=== PATIENT | male | born 1950 ===

== ENCOUNTER 2017-03-29 10:54 | Emergency (ER) | payer OTHER ==
[~2017-03-29] VITALS: Ht 172.7 cm; Wt 97.5 kg
[~2017-03-29 10:54] MED LIST: ACET325 PO; ALBU.083IS IH; AMLO5; ARIP10 PO; ARIP30 PO; ASPI325; ASPI325 PO; BENZ.5 PO; BENZ1; BENZ2; BISA10S PR; CALCAVITD PO; CALPHO600; CARB200; CARB200 PO; CEPH500 PO; CLOBET30L TP; CLOP75 PO; DOC250; DOC250 PO; FERR325 PO; FEXO180 PO; FIBER LAX625 MG PO; FLUV50 PO; HYDACE5 PO; IBUP600 PO; LAMO5 PO; MOM PO; OLAN10; OLAN10 PO; OLAN5; PHENO100; PHENO15 PO; POLY500 PO; PRAV20 PO; QUIN10; SENN187 PO; SENNP; SERT100; SERT100 PO; SULTRIDS PO; TAMS.4ER PO; TERB24TC TOP; TOLN1TC TOP; TRAZ100; VITB2 PO; WARF4; WARF7.5; [UNRECOGNIZED DRUG - OTHER]
[2017-03-29] MEDS ORDERED: Cleocin HCl300 MG PO (12:03)
== END 2017-03-29 12:07 | disposition home or self-care (01) ==
LOC: ER 10:54
DX: L03.031 Cellulitis of right toe (principal); I10 Essential (primary) hypertension; G40.909 Epilepsy, unspecified, not intractable, without status epilepticus; J44.9 Chronic obstructive pulmonary disease, unspecified; Z88.1 Allergy status to other antibiotic agents; Z79.899 Other long term (current) drug therapy
CPT/HCPCS: 73630; 99283

== ENCOUNTER → 2017-06-16 | Outpatient (CLI) | payer OTHER ==
[~2017-06-16] MED LIST changes: +Cleocin HCl300 MG PO
[2017-06-16 10:51] LABS: Source, Urine Voided
[2017-06-16 11:50] LABS: Bilirubin, Urine Neg (Neg); Blood, Urine Neg (Neg); Glucose Qualitative, Urine Neg (Neg); Ketones, Urine Neg (Neg); Leukocyte Esterase, Urine Neg (Neg); Nitrite, Urine Neg (Neg); Protein, Urine Neg (Neg); Urobilinogen, Urine NORM (Normal)
[2017-06-16 12:03] LABS: Appearance, Urine Clear (Clear); Color, Urine Yellow (P-Yellow)
== END | disposition home or self-care (01) ==
LOC: OLS 10:49
PROVIDERS: Registered Nurse Psychiatric/Mental Health
DX: R32 Unspecified urinary incontinence (principal)
CPT/HCPCS: 81003

== ENCOUNTER 2018-05-19 09:41 | Emergency (ER) | payer OTHER ==
[~2018-05-19] VITALS: Ht 172.7 cm; Wt 104.3 kg
== END 2018-05-19 11:03 | disposition home or self-care (01) ==
LOC: ER 09:41
DX: S93.402A Sprain of unspecified ligament of left ankle, initial encounter (principal); I10 Essential (primary) hypertension; J44.9 Chronic obstructive pulmonary disease, unspecified; Z79.899 Other long term (current) drug therapy; W18.30XA Fall on same level, unspecified, initial encounter
CPT/HCPCS: 73610; 99283-25

== ENCOUNTER → 2018-09-02 | Outpatient (CLI) | payer OTHER ==
[~2018-09-02] MED LIST changes: +FLUO10 PO; +LAMO100 PO; +PHENO100 PO; +PRAV20; +TOPI25 PO
[2018-09-03 14:16] LABS: Stool Occult Bld Immuno 1 Negative (NEGATIVE)
== END | disposition home or self-care (01) ==
LOC: LAB 14:12 → LAB SHORT 14:12
PROVIDERS: Family Medicine
DX: Z12.11 Encounter for screening for malignant neoplasm of colon (principal)
CPT/HCPCS: G0328

== ENCOUNTER 2018-12-07 11:31 | Emergency (ER) | payer OTHER ==
[~2018-12-07] VITALS: Ht 170.2 cm; Wt 117.5 kg
[~2018-12-07 11:31] MED LIST changes: -FLUO10 PO; -LAMO100 PO; -PHENO100 PO; -PRAV20; -TOPI25 PO
[2018-12-07] MEDS ORDERED: PHENO100 PO (11:48)
[2018-12-07] MEDS ORDERED: LAMO100 PO (11:49)
[2018-12-07] MEDS ORDERED: FLUO10 PO (11:49)
[2018-12-07] MEDS ORDERED: CLOP75 PO (11:49)
[2018-12-07] MEDS ORDERED: PRAV20 (11:49)
[2018-12-07] MEDS ORDERED: TOPI25 PO (11:50)
[2018-12-07 12:05] LABS: BASOPHILS ABSOLUTE AUTO 0.05 K/mm3 (0.00-0.23); BASOPHILS PERCENT AUTO 1 % (0-2); EOSINOPHILS ABSOLUTE AUTO 0.33 K/mm3 (0.00-0.68); EOSINOPHILS PERCENT AUTO 6 % (0-6); Hematocrit 39.5 % (37.0-53.0); Hemoglobin 12.6 g/dL (13.5-17.5); IMMATURE GRAN ABSOLUTE AUTO 0.01 K/mm3 (0.00-0.10); IMMATURE GRAN PERCENT AUTO 0 % (0-1); LYMPHOCYTES ABSOLUTE AUTO 0.95 K/mm3 (0.84-5.20); LYMPHOCYTES PERCENT AUTO 17 % (21-46); MONOCYTES ABSOLUTE AUTO 0.61 K/mm3 (0.16-1.47); MONOCYTES PERCENT AUTO 11 % (4-13); Mean Corpuscular HGB 32.1 pg (26.0-34.0); Mean Corpuscular HGB Conc 31.9 g/dL (31.5-36.5); Mean Corpuscular Volume 101 fL (80-100); Mean Platelet Volume 9.3 fL (9.1-12.4); NEUTROPHILS ABSOLUTE AUTO 3.64 K/mm3 (1.96-9.15); NEUTROPHILS PERCENT AUTO 65 % (41-73); Platelet Count 183 K/mm3 (150-400); RDW Coefficient Variation 14.2 % (11.7-14.2); RDW Standard Deviation 53.2 fL (35.1-46.3); Red Blood Cell Count 3.93 M/mm3 (4.30-5.90); White Blood Cell Count 5.59 K/mm3 (4.00-11.30)
[2018-12-07 12:31] LABS: Alanine Aminotransfer (ALT/SGP 24 U/L (12-78); Albumin, Blood 3.6 g/dL (3.4-5.0); Alk Phos 198 U/L (50-136); Anion Gap 7 mmol/L (6-16); Aspartate Aminotrans (AST/SGOT 19 U/L (12-37); Bilirubin, Total 0.4 mg/dL (0.1-1.0); Blood Urea Nitrogen 10 mg/dL (8-24); CO2, Blood 27 mmol/L (21-32); Calcium, Blood 8.6 mg/dL (8.5-10.1); Chloride, Blood 111 mmol/L (98-108); Creatinine, Blood 0.53 mg/dL (0.60-1.20); Globulin, Blood 3.6 g/dL (2.2-4.0); Glomerular Filtration Rate >60 (60-); Glucose, Blood 77 mg/dL (70-99); Potassium, Blood 3.6 mmol/L (3.5-5.5); Sodium, Blood 145 mmol/L (136-145); Total Protein, Blood 7.2 g/dL (6.4-8.2); Troponin I <0.015 ng/mL (0.000-0.040)
== END 2018-12-07 13:42 | disposition home or self-care (01) ==
LOC: ER 11:31
PROVIDERS: Emergency Medicine
DX: S00.03XA Contusion of scalp, initial encounter (principal); I48.91 Unspecified atrial fibrillation; I10 Essential (primary) hypertension; J44.9 Chronic obstructive pulmonary disease, unspecified; G47.30 Sleep apnea, unspecified; Z88.1 Allergy status to other antibiotic agents; Z79.899 Other long term (current) drug therapy; W18.30XA Fall on same level, unspecified, initial encounter
CPT/HCPCS: 36415; 70450; 71046; 80053; 84484; 85025; 93005; 93010; 99284-25

== ENCOUNTER 2019-01-30 12:04 | Emergency (ER) | payer OTHER ==
[~2019-01-30] VITALS: Ht 172.7 cm; Wt 117.9 kg
[~2019-01-30 12:04] MED LIST changes: +FLUO10 PO; +LAMO100 PO; +PHENO100 PO; +PRAV20; +TOPI25 PO
[2019-01-30 15:24] LABS: BASOPHILS ABSOLUTE AUTO 0.08 K/mm3 (0.00-0.23); BASOPHILS PERCENT AUTO 1 % (0-2); EOSINOPHILS ABSOLUTE AUTO 0.52 K/mm3 (0.00-0.68); EOSINOPHILS PERCENT AUTO 7 % (0-6); Hematocrit 39.4 % (37.0-53.0); Hemoglobin 11.9 g/dL (13.5-17.5); IMMATURE GRAN ABSOLUTE AUTO 0.02 K/mm3 (0.00-0.10); IMMATURE GRAN PERCENT AUTO 0 % (0-1); LYMPHOCYTES ABSOLUTE AUTO 0.93 K/mm3 (0.84-5.20); LYMPHOCYTES PERCENT AUTO 12 % (21-46); MONOCYTES ABSOLUTE AUTO 0.79 K/mm3 (0.16-1.47); MONOCYTES PERCENT AUTO 11 % (4-13); Mean Corpuscular HGB 31.2 pg (26.0-34.0); Mean Corpuscular HGB Conc 30.2 g/dL (31.5-36.5); Mean Corpuscular Volume 103 fL (80-100); NEUTROPHILS ABSOLUTE AUTO 5.21 K/mm3 (1.96-9.15); NEUTROPHILS PERCENT AUTO 69 % (41-73); Platelet Count 204 K/mm3 (150-400); RDW Coefficient Variation 14.3 % (11.7-14.2); RDW Standard Deviation 54.5 fL (35.1-46.3); Red Blood Cell Count 3.81 M/mm3 (4.30-5.90); White Blood Cell Count 7.55 K/mm3 (4.00-11.30)
[2019-01-30 15:49] LABS: Alanine Aminotransfer (ALT/SGP 25 U/L (12-78); Albumin, Blood 3.4 g/dL (3.4-5.0); Albumin/Globulin Ratio 0.9 (0.8-1.8); Alk Phos 238 U/L (50-136); Anion Gap 4 mmol/L (6-16); Aspartate Aminotrans (AST/SGOT 27 U/L (12-37); Bilirubin, Total 0.5 mg/dL (0.1-1.0); Blood Urea Nitrogen 7 mg/dL (8-24); Bun/Creatinine Ratio 12.4 (12.0-20.0); CO2, Blood 36 mmol/L (21-32); Calcium, Blood 9.1 mg/dL (8.5-10.1); Chloride, Blood 100 mmol/L (98-108); Creatinine, Blood 0.56 mg/dL (0.60-1.20); Globulin, Blood 3.9 g/dL (2.2-4.0); Glomerular Filtration Rate >60 (60-); Glucose, Blood 88 mg/dL (70-99); Potassium, Blood 3.8 mmol/L (3.5-5.5); Sodium, Blood 140 mmol/L (136-145); Total Protein, Blood 7.3 g/dL (6.4-8.2); Troponin I <0.015 ng/mL (0.000-0.040)
[2019-01-30] MEDS ORDERED: Dyazide 37.5-21 EACH PO (16:17)
== END 2019-01-30 16:50 | disposition home or self-care (01) ==
LOC: ER 12:04
PROVIDERS: Physician Assistant
DX: E87.70 Fluid overload, unspecified (principal); I10 Essential (primary) hypertension; J45.909 Unspecified asthma, uncomplicated; I48.91 Unspecified atrial fibrillation; Z87.442 Personal history of urinary calculi; Z88.8 Allergy status to other drugs, medicaments and biological substances; Z79.899 Other long term (current) drug therapy; Z79.02 Long term (current) use of antithrombotics/antiplatelets
CPT/HCPCS: 36415; 71046; 80053; 83880; 84484; 85025; 93005; 93010; 94640; 99284-25

== ENCOUNTER 2019-07-15 21:11 | Emergency (ER) | payer OTHER ==
[~2019-07-15] VITALS: Ht 172.7 cm; Wt 113.4 kg
[~2019-07-15 21:11] MED LIST changes: +Dyazide 37.5-21 EACH PO
[2019-07-15 22:59] LABS: BASOPHILS ABSOLUTE AUTO 0.02 K/mm3 (0.00-0.23); BASOPHILS PERCENT AUTO 0 % (0-2); EOSINOPHILS ABSOLUTE AUTO 0.13 K/mm3 (0.00-0.68); EOSINOPHILS PERCENT AUTO 2 % (0-6); Hematocrit 36.2 % (37.0-53.0); Hemoglobin 12.4 g/dL (13.5-17.5); IMMATURE GRAN ABSOLUTE AUTO 0.02 K/mm3 (0.00-0.10); IMMATURE GRAN PERCENT AUTO 0 % (0-1); LYMPHOCYTES ABSOLUTE AUTO 0.75 K/mm3 (0.84-5.20); LYMPHOCYTES PERCENT AUTO 12 % (21-46); MONOCYTES ABSOLUTE AUTO 0.94 K/mm3 (0.16-1.47); MONOCYTES PERCENT AUTO 16 % (4-13); Mean Corpuscular HGB 32.5 pg (26.0-34.0); Mean Corpuscular HGB Conc 34.3 g/dL (31.5-36.5); Mean Corpuscular Volume 95 fL (80-100); Mean Platelet Volume 8.7 fL (9.1-12.4); NEUTROPHILS ABSOLUTE AUTO 4.19 K/mm3 (1.96-9.15); NEUTROPHILS PERCENT AUTO 69 % (41-73); Platelet Count 177 K/mm3 (150-400); RDW Coefficient Variation 12.5 % (11.7-14.2); RDW Standard Deviation 43.7 fL (35.1-46.3); Red Blood Cell Count 3.82 M/mm3 (4.30-5.90); White Blood Cell Count 6.05 K/mm3 (4.00-11.30)
[2019-07-15 23:17] LABS: Alanine Aminotransfer (ALT/SGP 47 U/L (12-78); Albumin, Blood 3.3 g/dL (3.4-5.0); Albumin/Globulin Ratio 0.9 (0.8-1.8); Alk Phos 161 U/L (50-136); Anion Gap 7 mmol/L (6-16); Aspartate Aminotrans (AST/SGOT 127 U/L (12-37); Bilirubin, Total 0.9 mg/dL (0.1-1.0); Blood Urea Nitrogen 8 mg/dL (8-24); Bun/Creatinine Ratio 17.5 (12.0-20.0); CO2, Blood 33 mmol/L (21-32); Calcium, Blood 8.1 mg/dL (8.5-10.1); Chloride, Blood 92 mmol/L (98-108); Creatinine, Blood 0.46 mg/dL (0.60-1.20); Globulin, Blood 3.7 g/dL (2.2-4.0); Glomerular Filtration Rate >60 (60-); Glucose, Blood 115 mg/dL (70-99); Potassium, Blood 3.4 mmol/L (3.5-5.5); Sodium, Blood 132 mmol/L (136-145)
== END 2019-07-15 23:48 | disposition home or self-care (01) ==
LOC: ER 21:11
PROVIDERS: Emergency Medicine
DX: K62.5 Hemorrhage of anus and rectum (principal); I10 Essential (primary) hypertension; I48.91 Unspecified atrial fibrillation; J44.9 Chronic obstructive pulmonary disease, unspecified; F20.9 Schizophrenia, unspecified; G47.33 Obstructive sleep apnea (adult) (pediatric); Z88.1 Allergy status to other antibiotic agents; Z79.899 Other long term (current) drug therapy; Z79.51 Long term (current) use of inhaled steroids; Z79.02 Long term (current) use of antithrombotics/antiplatelets
CPT/HCPCS: 36415; 74018; 80053; 85025; 99283-25

== ENCOUNTER → 2019-07-16 | Outpatient (CLI) | payer OTHER | END | disposition home or self-care (01) | LOC: LAB SHORT 14:05 → LAB EV 14:05 | DX: L03.113 Cellulitis of right upper limb (principal) | CPT/HCPCS: 87070; 87075; 87077; 87147; 87186; 87205 ==

== ENCOUNTER → 2020-01-31 | Outpatient (CLI) | payer OTHER ==
[2020-01-31 11:18] LABS: Appearance, Urine Clear (Clear); Bilirubin, Urine Neg (Neg); Blood, Urine Neg (Neg); Color, Urine Yellow (P-Yellow); Glucose Qualitative, Urine Neg (Neg); Ketones, Urine Neg (Neg); Leukocyte Esterase, Urine Neg (Neg); Nitrite, Urine Neg (Neg); Protein, Urine Neg (Neg); Specific Gravity, Urine 1.005 (1.003-1.022); Urobilinogen, Urine NORM (Normal)
== END ==
LOC: LAB SHORT 10:27 → LAB 10:27
PROVIDERS: Family Medicine
DX: R30.0 Dysuria (principal)
CPT/HCPCS: 81003

== ENCOUNTER → 2020-02-27 | Outpatient (CLI) | payer OTHER ==
[2020-02-27 16:00] LABS: Appearance, Urine Hazy (Clear); Bilirubin, Urine Neg (Neg); Blood, Urine 1+ (Neg); Color, Urine Yellow (P-Yellow); Glucose Qualitative, Urine Neg (Neg); Ketones, Urine Neg (Neg); Leukocyte Esterase, Urine 2+ (Neg); Nitrite, Urine Pos (Neg); Protein, Urine Neg (Neg); Specific Gravity, Urine 1.005 (1.003-1.022); Urobilinogen, Urine NORM (Normal)
[2020-02-27 16:16] LABS: Bacteria Many /hpf; Squamous Epithelial Cells Few /hpf (Few); White Blood Cells, Urine 25-50 /hpf (0-5)
== END | disposition home or self-care (01) ==
LOC: LAB 14:16
PROVIDERS: Family Medicine
DX: R30.0 Dysuria (principal)
CPT/HCPCS: 81001; 87077; 87086; 87186

== ENCOUNTER 2021-04-06 01:24 | Inpatient (IN) | payer OTHER ==
[~2021-04-06] VITALS: Ht 172.7 cm; Wt 112.9 kg
[2021-04-06] MEDS ORDERED: ABILIFY MYCITE10 M2 PO (01:43)
[2021-04-06] MEDS ORDERED: LOSA25 PO (01:45)
[2021-04-06] MEDS ORDERED: NYSTOP15 GM TOP (01:48)
[2021-04-06] MEDS ORDERED: POTA10T PO (01:51)
[2021-04-06] MEDS ORDERED: PROAIR DIGIHAL90 MCG INH (01:53)
[2021-04-06] MEDS ORDERED: TORSE20 PO (01:55)
[2021-04-06] MEDS ORDERED: TRIDERM28.4 GM TOP (01:56)
[2021-04-06] MEDS ORDERED: TRIAMTERENE-HCTZ (01:59)
[2021-04-06] MEDS ORDERED: OLAN20 MM (02:00)
[2021-04-06 03:56] LABS: BASOPHILS ABSOLUTE AUTO 0.05 K/mm3 (0.00-0.23); BASOPHILS PERCENT AUTO 0 % (0-2); EOSINOPHILS PERCENT AUTO 0 % (0-6); Hematocrit 31.7 % (37.0-53.0); Hemoglobin 10.6 g/dL (13.5-17.5); IMMATURE GRAN ABSOLUTE AUTO 0.08 K/mm3 (0.00-0.10); IMMATURE GRAN PERCENT AUTO 1 % (0-1); LYMPHOCYTES ABSOLUTE AUTO 0.94 K/mm3 (0.84-5.20); LYMPHOCYTES PERCENT AUTO 6 % (21-46); MONOCYTES ABSOLUTE AUTO 1.23 K/mm3 (0.16-1.47); MONOCYTES PERCENT AUTO 8 % (4-13); Mean Corpuscular HGB 31.5 pg (26.0-34.0); Mean Corpuscular HGB Conc 33.4 g/dL (31.5-36.5); Mean Corpuscular Volume 94 fL (80-100); Mean Platelet Volume 8.6 fL (9.1-12.4); NEUTROPHILS ABSOLUTE AUTO 14.07 K/mm3 (1.96-9.15); NEUTROPHILS PERCENT AUTO 86 % (41-73); Platelet Count 192 K/mm3 (150-400); RDW Coefficient Variation 13.5 % (11.7-14.2); RDW Standard Deviation 46.6 fL (35.1-46.3); Red Blood Cell Count 3.36 M/mm3 (4.30-5.90); White Blood Cell Count 16.37 K/mm3 (4.00-11.30)
--- NOTE | 2021-04-06 04:00 | NUR ---
PT ARRIVES TO ICU AT 0336. HE IS ON AWAKE AND ALERT, ON BIPAP 14/10, FIO2 30%, VSS. PT IS MILDLY TACHYPNEIC, WHEEZES THROUGHOUT AND CRACKLES IN THE BASES. SPO2 IN HIGH 90'S. PT IS TRANSFERRED TO ICU BED AND SKIN IS ASSESSED. HE HAS SMALL SCATTERED BRUISES AND SUPERFICIAL ABRASIONS, EDEMATOUS BLE. BJ 3MM, DE PAZ, EQUAL STRENGTH AND MOVEMENT. CAREGIVER IS IN ATTENDANCE PT RESIDES AT [facility] DUE TO HX OF DEVELOPMENTAL DELAY AND SCHIZOPHRENIA. MD ORDERS ARE IMPLEMENTED AND ADMISSION COMPLETED.
[2021-04-06] MEDS ORDERED: ACET500 PO (04:08)
[2021-04-06] MEDS ORDERED: Ventolin5 MG/1 ML INH (04:10)
[2021-04-06] MEDS ORDERED: CLOBET30L TOP (04:13)
[2021-04-06] MEDS ORDERED: DOC250 PO (04:14)
[2021-04-06] MEDS ORDERED: MIRALAX17 GM PO (04:17)
[2021-04-06 04:19] LABS: Troponin I 0.17 ng/mL (0.000-0.040)
[2021-04-06 04:30] LABS: Alanine Aminotransfer (ALT/SGP 26 U/L (12-78); Albumin, Blood 2.5 g/dL (3.4-5.0); Albumin/Globulin Ratio 0.7 (0.8-1.8); Alk Phos 147 U/L (50-136); Anion Gap 8 mmol/L (6-16); Aspartate Aminotrans (AST/SGOT 37 U/L (12-37); Bilirubin, Total 1.1 mg/dL (0.1-1.0); Blood Urea Nitrogen 15 mg/dL (8-24); Bun/Creatinine Ratio 30.7 (12.0-20.0); CO2, Blood 28 mmol/L (21-32); Calcium, Blood 7.5 mg/dL (8.5-10.1); Chloride, Blood 99 mmol/L (98-108); Creatinine, Blood 0.49 mg/dL (0.60-1.20); Globulin, Blood 3.5 g/dL (2.2-4.0); Glomerular Filtration Rate >60 (60-); Glucose, Blood 118 mg/dL (70-99); Potassium, Blood 3.7 mmol/L (3.5-5.5); Sodium, Blood 135 mmol/L (136-145)
[2021-04-06 04:33] LABS: Creatine Kinase MB 4.7 ng/mL (0.0-3.6); Creatine Kinase MB Index 1.1 (0.0-4.0)
[2021-04-06 04:41] LABS: Source, Urine Catheter
[2021-04-06 04:44] LABS: Bilirubin, Urine Neg (Neg); Blood, Urine 3+ (Neg); Glucose Qualitative, Urine Neg (Neg); Ketones, Urine Neg (Neg); Leukocyte Esterase, Urine 2+ (Neg); Nitrite, Urine Neg (Neg); Protein, Urine 2+ (Neg); Urobilinogen, Urine NORM (Normal)
[2021-04-06 04:57] LABS: Appearance, Urine Hazy (Clear); Color, Urine Yellow (P-Yellow)
[2021-04-06 04:58] LABS: Bacteria Mod /hpf; Squamous Epithelial Cells Rare /hpf (Few)
[2021-04-06 04:59] LABS: Amorphous Light (0-Heavy)
[2021-04-06 05:05] LABS: U Amphetamine Screen Not Detected; U Barbituate Screen DETECTED; U Benzodiazapine Screen Not Detected; U Buprenorphine Screen Not Detected; U Cannabinoids Screen Not Detected; U Cocaine Screen Not Detected; U Methadone Screen Not Detected; U Methamphetamine Screen Not Detected; U Opiates Screen Not Detected; U Oxycodone Screen Not Detected; U Phencyclidine Screen Not Detected; U Propoxyphene Screen Not Detected
--- NOTE | 2021-04-06 06:11 | NUR ---
NO ACUTE CHANGES. PT IS SLEEPING RESTFULLY WITH BIPAP ON. VSS. CAREGIVER HAS LEFT FOR THE SHIFT, UNSURE IF A DAYSHIFT CAREGIVER WILL ARRIVE SOON, BUT WE HAVE CONTACT INFO IF NEEDED. WILL CONTINUE TO MONITOR AND REPORT TO ONCOMING SHIFT.
--- NOTE | 2021-04-06 07:00 | NUR ---
ASSUME CARE: I have assumed care of pt at this time.
[2021-04-06 11:57] LABS: Troponin I 0.065 ng/mL (0.000-0.040)
[2021-04-06 12:11] LABS: Creatine Kinase MB 4.9 ng/mL (0.0-3.6); Creatine Kinase MB Index 1.3 (0.0-4.0)
--- NOTE | 2021-04-06 13:20 | NUR ---
SBT: Pt tolerated SBT well for approximately three hours. He was changed back to AV/VC by Dr Nobles due to work of breathing. RN was concerned for trachial tugging and abdominal muscle use.
--- NOTE | 2021-04-06 14:20 | NUR ---
UPDATE: Dr. Caruso called for PRN neb order; he will put new order in.
--- NOTE | 2021-04-06 14:38 | NUR ---
TRANSFER: Report given to PET WALKER and questions answered. Pt unable to produce sputum sample with instruction from RN and facility caregiver at bedside. Troponin and CK trending down. Pt up in chair, eating meals with minimal assistance, and interactive with staff. [place] vest and tab alarm remain in place as pt is impulsive and high fall risk. He will be transferrted to PCU 6 by COMPUTER INSTALLATION ENGINEER when room in available.
--- NOTE | 2021-04-06 15:45 | NUR ---
ASSUMPTION OF CARE: TRANSFER FROM ICU TO PCU. REPORT RECEIVED FROM NATTY. NO CHANGES NOTED FROM PREVIOUS ASSESSMENT IN AM. WILL CONTINUE TO MONITOR UNTIL TRANSFER OF CARE TO ONCOMING RN.
--- NOTE | 2021-04-06 20:00 | NUR ---
ASSUMED CARE OF PT AT 1900. A/OX2 (SELF, PLACE). HX OF DEVELOPMENTAL DELAY. MAINTAINS ABOVE 95% ON 2LNC, WHEEZING CAN BE HEARD T/O ALL LUNG OROPEZA ON INSP&EXPIR EXCEPT LLL WHICH IS DIM. WEARS CPAP HS. CHRONIC AFIB AVG 88. URINARY CATHETER DRAINING TO GRAVITY CLEAR/DARK YELLOW URINE. PATIENT HAS GARBLED SPEECH. WILL UPDATE CHANGES OCCUR.
[2021-04-07 01:55] LABS: Hemoglobin 11.1 g/dL (13.5-17.5); Mean Corpuscular HGB 31.6 pg (26.0-34.0); Mean Corpuscular HGB Conc 33.6 g/dL (31.5-36.5); Mean Corpuscular Volume 94 fL (80-100); Mean Platelet Volume 8.7 fL (9.1-12.4); Platelet Count 225 K/mm3 (150-400); RDW Coefficient Variation 13.6 % (11.7-14.2); RDW Standard Deviation 46.6 fL (35.1-46.3); Red Blood Cell Count 3.51 M/mm3 (4.30-5.90); White Blood Cell Count 13.38 K/mm3 (4.00-11.30)
[2021-04-07 02:13] LABS: Anion Gap 7 mmol/L (6-16); Blood Urea Nitrogen 21 mg/dL (8-24); CO2, Blood 30 mmol/L (21-32); Calcium, Blood 8.4 mg/dL (8.5-10.1); Chloride, Blood 99 mmol/L (98-108); Creatinine, Blood 0.54 mg/dL (0.60-1.20); Glomerular Filtration Rate >60 (60-); Glucose, Blood 111 mg/dL (70-99); Potassium, Blood 4.1 mmol/L (3.5-5.5); Sodium, Blood 136 mmol/L (136-145); Vancomycin, Trough 13.6 ug/mL (5.0-10.0)
--- NOTE | 2021-04-07 12:37 | NUR ---
PATIENT ALERT TO SELF AND SOMEWHAT SITUATION. ABLE TO TELL ME THAT HE LIVES AT [facility]. SOME CONFUSING STATEMENTS AND SPEECH HARD TO UNDERSTAND. BILATERAL SCIENCE TECHNICIAN STRENGTH. PERRLA. ABLE TO MOVE ALL EXTREMITIES. DENIES NUMBNESS/TINGLING. LUNGS SOUNDING COARSE WITH EXPIRATORY WHEEZE. ON ROOM AIR SATING MID 90'S. STATES HE NORMALLY WEARS O2 AT HOME. TELE SHOWING AFIB WITH HR AVERAGING 90-110'S. DENIES CHEST PAIN/PRESSURE. VITAL SIGNS STABLE. DENIES ABDOMINAL PAIN/NAUSEA. MÁRQUEZ CATH IN PLACE DRAINING CLEAR/YELLOW URINE. SKIN OVERALL PALE AND FRAGILE. SCATTERED SCABS BILATERAL EXTREMITIES WITH SOME BLOOD BLISTERS TO TOES. ANTIBIOTICS INFUSED. TOLERATING PO DIET. ABLE TO SWALLOW PILLS WHOLE. DRINKING WATER. CALL LIGHT IN REACH. WILL CONTIUE TO MONITOR.
--- NOTE | 2021-04-07 18:14 | NUR ---
SHIFT SUMMARY: NO ACUTE CHANGES. REMAINS ON ROOM AIR SATING LOW-MID 90'S. TELE REMAINS UNCHANGED. DENIES OVERALL PAINS. EATING WELL. HELPING WITH TURNS IN BED. NEURO REMAINS UNCHANGED. ANTIBIOTICS INFUSED. CALL LIGHT IN REACH. DENIES NEEDS AT THIS TIME. WILL CONTINUE TO MONITOR.
[2021-04-08 02:50] LABS: Hematocrit 31.7 % (37.0-53.0); Hemoglobin 10.5 g/dL (13.5-17.5); Mean Corpuscular HGB 31.5 pg (26.0-34.0); Mean Corpuscular HGB Conc 33.1 g/dL (31.5-36.5); Mean Corpuscular Volume 95 fL (80-100); Mean Platelet Volume 8.6 fL (9.1-12.4); Platelet Count 225 K/mm3 (150-400); RDW Coefficient Variation 13.7 % (11.7-14.2); RDW Standard Deviation 47.9 fL (35.1-46.3); Red Blood Cell Count 3.33 M/mm3 (4.30-5.90); White Blood Cell Count 11.01 K/mm3 (4.00-11.30)
[2021-04-08 03:08] LABS: Anion Gap 5 mmol/L (6-16); Blood Urea Nitrogen 16 mg/dL (8-24); Bun/Creatinine Ratio 31.5 (12.0-20.0); CO2, Blood 30 mmol/L (21-32); Calcium, Blood 8.3 mg/dL (8.5-10.1); Chloride, Blood 98 mmol/L (98-108); Creatinine, Blood 0.51 mg/dL (0.60-1.20); Glomerular Filtration Rate >60 (60-); Glucose, Blood 122 mg/dL (70-99); Potassium, Blood 3.9 mmol/L (3.5-5.5); Sodium, Blood 133 mmol/L (136-145)
[2021-04-08 03:09] LABS: Vancomycin, Trough 14.6 ug/mL (5.0-10.0)
--- NOTE | 2021-04-08 05:47 | NUR ---
ENGINE COWLING INSTALLER SUMMARY PT IS AXO TO SELF AND PLACE BUT HE DOES NOT FOLLOW DIRECTIONS. PT'S O2 SATS >92% ON RM AIR FOR FIRST PART OF THE SHIFT HOWEVER, THE PT WAS DRINKING WATER WHEN HE SEVERLY ASPIRATED REQUIRING SUCTIONING. FROM THAT POINT THE PT REQUIRED 1L NC TO MAINTAIN O2 SATS >90% AND HAD A NONPRODUCTIVE COUGH THE REST OF THE SHIFT. PT WAS GIVEN NO MORE WATER FROM THAT POINT. BP MODERATELY ELEVATED FOR FIRST PART OF THE SHIFT W SBP IN THE 160'S BUT IS WNL THIS AM. TELE SHOWING AFIB 80-100 THIS SHIFT. PT SLEEPING COMFORTABLY FOR THE SECOND HALF OF THE NIGHT. WILL REPORT TO ONCOMING RN.
--- NOTE | 2021-04-08 07:30 | NUR ---
INITIAL ASSESSMENT: Patient is awake and sitting up in bed. He is able to tell me his name,birthday, and where he is. He does not know the date. He denies pain at this time. HR Irreg, a-fib in the 90s. LS dim on the left, ls dim, coarse, with exp wheezing on the right. Patient has a forced exp wheeze, requested breathing tx from RT.Biox wnl on RA. BT+. PPP. VSS. Patient denies needs at this time. Call light in reach, Will continue to monitor.
--- NOTE | 2021-04-08 12:00 | NUR ---
Update: Patient has been doing well, oxygen saturations stable on RA. VSS, blood pressure a little high, he takes cozaar at home-will contact MD to obtain order. Patient denies needs at this time. Call light in reach, bed alarm on for safety. Will continue to monitor.
--- NOTE | 2021-04-08 15:00 | NUR ---
Update: Patient OOB to chair with 2 person assist. Caregiver from [facility] at the bedside, she was given an update. Bed bath and linen change at this time. Patient denies other needs at this time. Call light in reach, will continue to monitor.
--- NOTE | 2021-04-08 17:00 | NUR ---
Update: Report given to Shamika VALLADARES, patient was transferred to PCU 16 via recliner.
--- NOTE | 2021-04-08 18:11 | NUR ---
SUMMARY: Patient was admitted with respiratory failure and pneumonia. Patient has had a good day. He is alert and oriented to self and following directions only. His oxygen saturations have been stable on RA t/o the shift. He does get SOB with exertion and has an audible expiratory wheeze, MD is aware. BP a little on the high side today, MD aware home medications reordered. No other acute changes this shift. Patient was down graded to medical status and telemetry DC'd.
--- NOTE | 2021-04-08 18:25 | NUR ---
Pt was brought from U 6 to U 16. He is sitting up in the recliner, watching TV and asking for a fan and coffee. Fan was provided; PCT is making him a cup of coffee.
[2021-04-09 04:06] LABS: Anion Gap 6 mmol/L (6-16); Blood Urea Nitrogen 14 mg/dL (8-24); Bun/Creatinine Ratio 30.5 (12.0-20.0); CO2, Blood 32 mmol/L (21-32); Calcium, Blood 8.4 mg/dL (8.5-10.1); Chloride, Blood 98 mmol/L (98-108); Creatinine, Blood 0.46 mg/dL (0.60-1.20); Glomerular Filtration Rate >60 (60-); Glucose, Blood 115 mg/dL (70-99); Potassium, Blood 3.9 mmol/L (3.5-5.5); Sodium, Blood 136 mmol/L (136-145)
--- NOTE | 2021-04-09 04:16 | NUR ---
SHIFT SUMMARY ADMITTED FOR ACUTE RESPIRATORY FAILURE W/HYPOXIA, PNEUMONIA VS. CHF. FULL CODE. PLAN IS TO SWITCH TO PO ANTIB RX AND PO DIURETICS. HE LIVES AT [facility]. HE WAS A HEAVY 4 ASSIST TO RETURN HIM FROM THE CHAIR TO THE BED THIS SHIFT. HIS LEGS WOULD NOT HOLD HIM TO PIVOT TO THE BED. IV ANTIB RX ARE SCHEDULED. HE IS AN ASPIRATION RISK AND MUST BE SUPERVISED FOR ALL FOOD & FLUID INTAKE. HE HAS A DEVELOPMENTAL DELAY. HIS LUNGS SOUND WET. MÁRQUEZ CATHETER IN PLACE. HE DOES NOT USE THE CALL BUTTON, HE CALLS OUT.
--- NOTE | 2021-04-09 06:50 | NUR ---
HOSPITALIST NOTIFIED PT REMOVED INFLATED MÁRQUEZ. PT FOUND SITTING ON SIDE OF HIS BED WITH LEGS DANGLING. BED ALARM WAS ON AND SOUNDING. PT INFORMED US THAT IT WAS TIME TO GET UP. HOSPITALIST INFORMED OF THESE EVENTS. KATI MACK ORDERED FOR PT SAFETY.
--- NOTE | 2021-04-09 09:19 | NUR ---
Alert, oriented to person, place, familiar persons, ongoing events and following directions. Short term memory with forgetfulness noted. Noted wheezing audible this morning. PCT reported pt was implusive and putting too much food in his mouth at once. I noted coughing when pt took one capsule with one spoonful of water while sitting upright in bed. Pt was given medications one at a time with applesauce on a spoon and no coughing was noted. Pt was afterwards able to drink water by medicine cupful and no coughing noted. Pt was able to cough and clear his airway to command as needed.
[2021-04-09] MEDS ORDERED: METO25ER PO (11:47)
[2021-04-09] MEDS ORDERED: Cleocin HCl150 MG PO (11:48)
--- NOTE | 2021-04-09 12:42 | NUR ---
The pt was assisted (2 person max assist) with gait belt from the bed to the chair about 2 hours ago. Since then he has used the urinal once with assistance, after calling out that he had to pee. Limited by his body shape to use the urinal and a lot of urinary incontinence also occured. He was assisted to stand and have the linen and attends changed. He requires max assistance to stand, this time using the gait belt and the ángel walker. He later then called out saying that he needed to poop, was again assisted to stand and pivot to the commode. Afterwards he was not able to stand and pivot transfer; he was able to stand with max assistance, but the commode chair had to be switched out for his recliner chair in order to make the transfer. He appears to be tolerating sitting in the recliner very well at this time. He was assisted to eat lunch, without any difficulty, but requires many cues and reminders to not eat too fast, or to swallow his food before putting more into his mouth. Thin liquids were given to him in a medicine cup in order to prevent him from drinking too much too quickly and risking aspiration.
[2021-04-09 14:24] LABS: Vancomycin, Trough 15.5 ug/mL (5.0-10.0)
--- NOTE | 2021-04-09 14:47 | NUR ---
Caregiver Tan arrived and was ready to take the pt home. Paulina RN assisted with taking out pt's IV, and transfer of pt from chair to the wheelchair to go to [facility]. I reviewed the discharge papers and isntructions with Tan after I arrived in the room when the pt was already sitting in the wheelchair. Questions answered, belongings gathered, and discharge papers were given to Tan. Tan took the pt out to vehicle in their own wheelchair.
== END 2021-04-09 14:37 | disposition home or self-care (01) | DRG 193 ==
LOC: ER 01:24 → PCU 03:12 → ICUW 03:12 → PCU 03:45 → ICUW 09:06 → PCU 14:51
PROVIDERS: Internal Medicine; ADMIT Internal Medicine
DX: J18.9 Pneumonia, unspecified organism (principal); J96.01 Acute respiratory failure with hypoxia; I50.31 Acute diastolic (congestive) heart failure; G40.909 Epilepsy, unspecified, not intractable, without status epilepticus; Z23 Encounter for immunization; M19.90 Unspecified osteoarthritis, unspecified site; L40.9 Psoriasis, unspecified; D64.9 Anemia, unspecified; Z20.822 Contact with and (suspected) exposure to COVID-19; I11.0 Hypertensive heart disease with heart failure; F20.9 Schizophrenia, unspecified; R62.50 Unspecified lack of expected normal physiological development in childhood; I48.91 Unspecified atrial fibrillation; B95.1 Streptococcus, group B, as the cause of diseases classified elsewhere
CPT/HCPCS: 36415; 80048; 80053; 80202; 81001; 82550; 82553; 84145; 84484; 85025; 85027; 87086; 87147; 90686; 94640; 94660; 94760; 94762; 96375; 99285; A9270; J0692; J1650; J1940; J1953; J2310; J3370; J7050

== ENCOUNTER 2021-05-13 15:41 | Inpatient (IN) | payer OTHER ==
[~2021-05-13] VITALS: Ht 172.7 cm; Wt 113.0 kg
[~2021-05-13 15:41] MED LIST changes: +ABILIFY MYCITE10 M2 PO; +ACET500 PO; +CLOBET30L TOP; +Cleocin HCl150 MG PO; +LOSA25 PO; +METO25ER PO; +MIRALAX17 GM PO; +NYSTOP15 GM TOP; +OLAN20 MM; +POTA10T PO; +PROAIR DIGIHAL90 MCG INH; +TORSE20 PO; +TRIAMTERENE-HCTZ; +TRIDERM28.4 GM TOP; +Ventolin5 MG/1 ML INH
[2021-05-13 18:50] LABS: BASOPHILS ABSOLUTE AUTO 0.05 K/mm3 (0.00-0.23); BASOPHILS PERCENT AUTO 0 % (0-2); EOSINOPHILS ABSOLUTE AUTO 0.07 K/mm3 (0.00-0.68); EOSINOPHILS PERCENT AUTO 1 % (0-6); Hematocrit 38.9 % (37.0-53.0); Hemoglobin 12.6 g/dL (13.5-17.5); IMMATURE GRAN ABSOLUTE AUTO 0.04 K/mm3 (0.00-0.10); IMMATURE GRAN PERCENT AUTO 0 % (0-1); LYMPHOCYTES ABSOLUTE AUTO 0.47 K/mm3 (0.84-5.20); LYMPHOCYTES PERCENT AUTO 4 % (21-46); MONOCYTES ABSOLUTE AUTO 0.59 K/mm3 (0.16-1.47); MONOCYTES PERCENT AUTO 5 % (4-13); Mean Corpuscular HGB 31.2 pg (26.0-34.0); Mean Corpuscular HGB Conc 32.4 g/dL (31.5-36.5); Mean Corpuscular Volume 96 fL (80-100); Mean Platelet Volume 9.1 fL (9.1-12.4); NEUTROPHILS ABSOLUTE AUTO 10.35 K/mm3 (1.96-9.15); NEUTROPHILS PERCENT AUTO 90 % (41-73); Platelet Count 193 K/mm3 (150-400); RDW Coefficient Variation 14.6 % (11.7-14.2); Red Blood Cell Count 4.04 M/mm3 (4.30-5.90); White Blood Cell Count 11.57 K/mm3 (4.00-11.30)
[2021-05-13 19:16] LABS: Alanine Aminotransfer (ALT/SGP 24 U/L (12-78); Albumin, Blood 3.7 g/dL (3.4-5.0); Albumin/Globulin Ratio 0.8 (0.8-1.8); Alk Phos 208 U/L (50-136); Anion Gap 6 mmol/L (6-16); Aspartate Aminotrans (AST/SGOT 24 U/L (12-37); Bilirubin, Total 0.9 mg/dL (0.1-1.0); Blood Urea Nitrogen 15 mg/dL (8-24); Bun/Creatinine Ratio 29.9 (12.0-20.0); CO2, Blood 30 mmol/L (21-32); Calcium, Blood 9.1 mg/dL (8.5-10.1); Chloride, Blood 96 mmol/L (98-108); Globulin, Blood 4.8 g/dL (2.2-4.0); Glomerular Filtration Rate >60 (60-); Glucose, Blood 107 mg/dL (70-99); Potassium, Blood 3.8 mmol/L (3.5-5.5); Sodium, Blood 132 mmol/L (136-145); Total Protein, Blood 8.5 g/dL (6.4-8.2)
[2021-05-13] MEDS ORDERED: K-Dur20 MEQ PO (19:21)
[2021-05-13] MEDS ORDERED: PHENOBARBITAL97.2 MG PO (19:23)
[2021-05-13] MEDS ORDERED: TAMSULOSIN HCL0.4 M1 PO (19:23)
[2021-05-13] MEDS ORDERED: OLANZAPINE PO (19:23)
[2021-05-13] MEDS ORDERED: OLAN10 PO (19:52)
[2021-05-13 20:26] LABS: Influenza B, PCR NEGATIVE (NEGATIVE); Resp Syncytial Virus, PCR NEGATIVE (NEGATIVE)
[2021-05-13 22:24] LABS: Influenza A, PCR POSITIVE (NEGATIVE); SARS-Cov-2 (COVID-19) PCR, MMC POSITIVE (NEGATIVE)
--- NOTE | 2021-05-14 05:55 | NUR ---
SHIFT SUMMARY: PATIENT HAS MAINTAINED O2 SATS >95% ON 3L OXIMYZER. DRY COUGH AT TIMES AND NEEDS TO BE REMINDED TO SLOW DOWN WHEN EATING/DRINKING. REPORT FROM ED WAS PATIENT IS SBA, BUT PATIENT DANGEROUSLY UNSTEADY ON FEET DESPITE INSTRUCTION TO USE WALKER. HYPERTENSIVE AT TIMES, BUT DIFFICULT TO GET GOOD BP READING R/T TENSING OF ARM AND MOVEMENT WHEN CUFF IS IN PLACE. DOES NOT USE CALL LIGHT - WILL CALL OUT AND NEEDS FREQUENT MONITORING. BED ALARM SET, THREE SIDE RAILS UP, AND PATIENT TUCKED INTO BED KEEPS SLIDING/ATTEMPTING TO GET OUT OF BED. WILL CONTINUE TO MONITOR AND REPORT TO ONCOMING RN.
[2021-05-14 06:20] LABS: BASOPHILS ABSOLUTE AUTO 0.02 K/mm3 (0.00-0.23); BASOPHILS PERCENT AUTO 0 % (0-2); EOSINOPHILS PERCENT AUTO 0 % (0-6); Hematocrit 33.2 % (37.0-53.0); Hemoglobin 10.7 g/dL (13.5-17.5); IMMATURE GRAN ABSOLUTE AUTO 0.03 K/mm3 (0.00-0.10); IMMATURE GRAN PERCENT AUTO 0 % (0-1); LYMPHOCYTES ABSOLUTE AUTO 0.25 K/mm3 (0.84-5.20); LYMPHOCYTES PERCENT AUTO 3 % (21-46); MONOCYTES ABSOLUTE AUTO 0.26 K/mm3 (0.16-1.47); MONOCYTES PERCENT AUTO 3 % (4-13); Mean Corpuscular HGB Conc 32.2 g/dL (31.5-36.5); Mean Corpuscular Volume 96 fL (80-100); Mean Platelet Volume 9.1 fL (9.1-12.4); NEUTROPHILS ABSOLUTE AUTO 7.06 K/mm3 (1.96-9.15); NEUTROPHILS PERCENT AUTO 93 % (41-73); Platelet Count 188 K/mm3 (150-400); RDW Coefficient Variation 14.6 % (11.7-14.2); RDW Standard Deviation 51.8 fL (35.1-46.3); Red Blood Cell Count 3.45 M/mm3 (4.30-5.90); White Blood Cell Count 7.62 K/mm3 (4.00-11.30)
[2021-05-14 06:49] LABS: Anion Gap 7 mmol/L (6-16); Blood Urea Nitrogen 19 mg/dL (8-24); Bun/Creatinine Ratio 32.7 (12.0-20.0); CO2, Blood 30 mmol/L (21-32); Calcium, Blood 8.2 mg/dL (8.5-10.1); Chloride, Blood 97 mmol/L (98-108); Creatinine, Blood 0.58 mg/dL (0.60-1.20); Glomerular Filtration Rate >60 (60-); Glucose, Blood 144 mg/dL (70-99); Potassium, Blood 3.5 mmol/L (3.5-5.5); Sodium, Blood 134 mmol/L (136-145)
[2021-05-14 09:10] LABS: Source, Urine Foley catheter
--- NOTE | 2021-05-14 09:25 | NUR ---
PT TRANSITIONED TO MEDICAL STATUS WITH NO TELE. PT WITH DEV DELAY, GARBLED SPEECH. VITALS HRR AFIB 70-90'S, SATS ABOVE 95% ON 2L OF O2 VIA OXYMIZER, AFEBRILE. PT HAD A PARTIAL BATH AND BED CHANGED THIS AM WAS SOAKED WITH URINE, ORDER RECEIVED FOR A CATHETER FOR I&O'S SINCE PT IS DIEURESING, MÁRQUEZ PLACED AND PT HAD 2100 MLS OF URINE OUT IN THE BAG AFTER 10MINS, URINE DARK YELLOW. PT ATE BREAKFAST AND TOOK MEDS WITH NO ISSUES. WILL MONITOR TIL THE REMAINDER OF THE SHIFT
[2021-05-14 09:37] LABS: Appearance, Urine Clear (Clear); Bilirubin, Urine Neg (Neg); Blood, Urine 1+ (Neg); Color, Urine Yellow (P-Yellow); Glucose Qualitative, Urine Neg (Neg); Ketones, Urine Neg (Neg); Leukocyte Esterase, Urine Neg (Neg); Nitrite, Urine Neg (Neg); Protein, Urine 1+ (Neg); Specific Gravity, Urine 1.015 (1.003-1.022); Urobilinogen, Urine NORM (Normal)
[2021-05-14 10:04] LABS: Red Blood Cells, Urine 0-2 /hpf (0-2); White Blood Cells, Urine 0-2 /hpf (0-5)
[2021-05-14 10:06] LABS: Bacteria Rare /hpf; Squamous Epithelial Cells Not Seen /hpf (Few)
--- NOTE | 2021-05-14 14:50 | NUR ---
Upon receiving an admit referral for spiritual care, I visit patient. Patient tells me about where he lives ([facility], the workers that he enjoys talking with and the many animals that are in and out of the facility. He explains that he has lived there for 17 years. He tells me that he is "bored" and wants to "get out of here." We talk about what he likes to do, music he like to listen to and jewelry he wears. Patient responds well to interventions of therapeutic listening, companionship and prayer. I will continue to remain available to patient and family.
--- NOTE | 2021-05-14 17:18 | NUR ---
PT SUMMARY: SEE PREVIOUS NOTES. NO ACUTE CHANGE FOR HANNAH REMAINDER OF THE SHIFT. BREATHING TX GIVEN X1 PER RT DUE TO MILD WHEEZING, PT HAS BEEN ON 2L OF O2 VIA OXYMIZER SPO2 >95%. STATUS CHANGE TO MEDICAL WITH NO TELE. PT DENIES ANY KIND OF PAIN, HAS BEEN REPOSITIONED FOR COMFORT, NO BM REPORTED, MÁRQUEZ PATENT DRAINING VIA GRAVITY. PT IS ABLE TO EAT AND DRINK JUST FINE BY HIMSELF. CURRENTLY DIURESING RECEIVING IV LASIX. PT USES CALL LIGHTS AND CALLS APPROPRIATELY. NO OTHER ISSUES REPORTED. WILL REPORT TO ONCOMING SHIFT
[2021-05-15 04:35] LABS: Anion Gap 4 mmol/L (6-16); Blood Urea Nitrogen 22 mg/dL (8-24); Bun/Creatinine Ratio 39.1 (12.0-20.0); CO2, Blood 33 mmol/L (21-32); Calcium, Blood 8.3 mg/dL (8.5-10.1); Chloride, Blood 100 mmol/L (98-108); Creatinine, Blood 0.56 mg/dL (0.60-1.20); Glomerular Filtration Rate >60 (60-); Glucose, Blood 120 mg/dL (70-99); Potassium, Blood 3.9 mmol/L (3.5-5.5); Sodium, Blood 137 mmol/L (136-145)
--- NOTE | 2021-05-15 06:15 | NUR ---
SHIFT SUMMARY PATIENT FOUND TO BE A PLESANT MAN WHO IS A&OX2-3, WITH GARBLED SPEECH AND A DEVELOPMENTAL DELAY AT BASELINE. GEN WEAKNESS NOTED BUT BEGINNING TO BE ABLE TO HELP MORE WITH TURNS IN BED. WILL PASS ON TO DAY SHIFT THE NEED TO GET PT ON BOARD TO REGAIN STRENGTH. FORGETFUL BUT COMPLIANT WITH CARE. FALL PRECAUTIONS IN PLACE AND SEIZURE PRECAUTIONS INITIATED. MED NO TELE STATUS. VSS. ON 2L OXYMIZER SATING MID 90'S. WAS FOUND TO BE CRACKLEY AND TACHYPENIC AT START OF SHIFT AND RT SUGGESTED LASIX. INFORMED MD AND ONE TIME LASIX GIVEN WITH GOOD RELIEF. STILL WITH SOME EX WHEEZES BUT THIS IS MORE OF PATIENT BASELINE WITH ASTHMA AND COPD. NON PRODUCTIVE COUGH. MÁRQUEZ PATENT DRAINING TO GRAVITY WITH GOOD OUTPUT. TOLERATING REGUALR DIET WITHOUT ISSUE. Q2H TURNS IN PLACE. PATIENT STATES HE IS FEELING READY TO GO HOME TODAY. NO ACUTE CONCERNS AT THIS TIME. WILL CONTINUE PLAN OF CARE UNTIL REPORT GIVEN TO FRANCI VALLADARES.
--- NOTE | 2021-05-15 09:09 | NUR ---
PT TITRATED OFF OF NC, HE IS ON ROOM AIR AT THIS TIME WITH SPO2 93%. RESTING WELL IN BED, GIFTY
[2021-05-15] MEDS ORDERED: OSEL75CA PO (12:58)
--- NOTE | 2021-05-15 15:05 | NUR ---
PT D/C TO HIS FACILITY. IV REMOVED INTACT, PRESSURE DRESSED. MÁRQUEZ CATH REMOVED, NO ACTIVE BLEEDING NOTED FROM MÁRQUEZ. STAFF FROM [facility] ARRIVED WITH W/C FOR TRANPORT HOME. STAFF WAS MADE AWARE OF NEW MEDICATION AND THAT MEDICATION HAD BEEN FAXED TO [facility], STAFF EXPRESSED UNDERSTANDING OF D/C TEACHING.
[2021-05-17] MEDS ORDERED: CLOP75 PO (17:30)
[2021-05-17] MEDS ORDERED: Prednisone20 MG PO (18:44)
[2021-05-27] MEDS ORDERED: ALBU90OI INH (01:26)
== END 2021-05-15 14:10 | disposition home or self-care (01) | DRG 871 ==
LOC: ER 15:41 → PCU 21:26
PROVIDERS: Emergency Medicine; Internal Medicine; Physician Assistant; ADMIT Internal Medicine
PROC: 8E0ZXY6 Isolation (ICD-10-PCS; principal; 2021-05-13)
PROC: 3E0333Z Introduction of Anti-inflammatory into Peripheral Vein, Percutaneous Approach (ICD-10-PCS; 2021-05-13)
PROC: XW0DXM6 Introduction of Baricitinib into Mouth and Pharynx, External Approach, New Technology Group 6 (ICD-10-PCS; 2021-05-13)
PROC: 5A09357 Assistance with Respiratory Ventilation, Less than 24 Consecutive Hours, Continuous Positive Airway Pressure (ICD-10-PCS; 2021-05-13)
DX: A41.89 Other specified sepsis (principal); U07.1 COVID-19; J96.21 Acute and chronic respiratory failure with hypoxia; I50.33 Acute on chronic diastolic (congestive) heart failure; J45.901 Unspecified asthma with (acute) exacerbation; J10.1 Influenza due to other identified influenza virus with other respiratory manifestations; G40.909 Epilepsy, unspecified, not intractable, without status epilepticus; L40.9 Psoriasis, unspecified; M19.90 Unspecified osteoarthritis, unspecified site; F89 Unspecified disorder of psychological development; J44.9 Chronic obstructive pulmonary disease, unspecified; E78.00 Pure hypercholesterolemia, unspecified; I11.0 Hypertensive heart disease with heart failure; N40.0 Benign prostatic hyperplasia without lower urinary tract symptoms; I48.91 Unspecified atrial fibrillation; F25.9 Schizoaffective disorder, unspecified; Z88.1 Allergy status to other antibiotic agents; Z79.02 Long term (current) use of antithrombotics/antiplatelets; Z79.899 Other long term (current) drug therapy
CPT/HCPCS: 0241U; 36415; 71045; 71046; 80048; 80053; 81001; 83690; 83880; 84484; 85025; 93005; 93010; 94762; 96374; 96375; 99285-25; A9270; C9399; J1650; J1940; J2060; J2930

== ENCOUNTER 2021-05-18 12:23 | Emergency (ER) | payer OTHER ==
[~2021-05-18] VITALS: Ht 175.3 cm; Wt 90.7 kg
[~2021-05-18 12:23] MED LIST changes: +K-Dur20 MEQ PO; +OLANZAPINE PO; +OSEL75CA PO; +PHENOBARBITAL97.2 MG PO; +Prednisone20 MG PO; +TAMSULOSIN HCL0.4 M1 PO
[2021-05-18 12:55] LABS: BASOPHILS ABSOLUTE AUTO 0.07 K/mm3 (0.00-0.23); BASOPHILS PERCENT AUTO 0 % (0-2); EOSINOPHILS ABSOLUTE AUTO 0.05 K/mm3 (0.00-0.68); EOSINOPHILS PERCENT AUTO 0 % (0-6); Hematocrit 39.5 % (37.0-53.0); Hemoglobin 12.5 g/dL (13.5-17.5); IMMATURE GRAN ABSOLUTE AUTO 0.09 K/mm3 (0.00-0.10); IMMATURE GRAN PERCENT AUTO 1 % (0-1); LYMPHOCYTES ABSOLUTE AUTO 0.66 K/mm3 (0.84-5.20); LYMPHOCYTES PERCENT AUTO 4 % (21-46); MONOCYTES ABSOLUTE AUTO 1.11 K/mm3 (0.16-1.47); MONOCYTES PERCENT AUTO 6 % (4-13); Mean Corpuscular HGB 30.9 pg (26.0-34.0); Mean Corpuscular HGB Conc 31.6 g/dL (31.5-36.5); Mean Corpuscular Volume 98 fL (80-100); Mean Platelet Volume 9.2 fL (9.1-12.4); NEUTROPHILS ABSOLUTE AUTO 15.29 K/mm3 (1.96-9.15); NEUTROPHILS PERCENT AUTO 89 % (41-73); Platelet Count 266 K/mm3 (150-400); RDW Coefficient Variation 14.5 % (11.7-14.2); RDW Standard Deviation 52.2 fL (35.1-46.3); Red Blood Cell Count 4.04 M/mm3 (4.30-5.90); White Blood Cell Count 17.27 K/mm3 (4.00-11.30)
[2021-05-18 13:06] LABS: Alanine Aminotransfer (ALT/SGP 25 U/L (12-78); Albumin, Blood 3.2 g/dL (3.4-5.0); Albumin/Globulin Ratio 0.7 (0.8-1.8); Alk Phos 175 U/L (50-136); Anion Gap 4 mmol/L (6-16); Aspartate Aminotrans (AST/SGOT 22 U/L (12-37); Bilirubin, Total 0.7 mg/dL (0.1-1.0); Blood Urea Nitrogen 14 mg/dL (8-24); CO2, Blood 34 mmol/L (21-32); Calcium, Blood 8.8 mg/dL (8.5-10.1); Chloride, Blood 98 mmol/L (98-108); Creatinine, Blood 0.54 mg/dL (0.60-1.20); Globulin, Blood 4.4 g/dL (2.2-4.0); Glomerular Filtration Rate >60 (60-); Glucose, Blood 135 mg/dL (70-99); Potassium, Blood 3.9 mmol/L (3.5-5.5); Sodium, Blood 136 mmol/L (136-145); Total Protein, Blood 7.6 g/dL (6.4-8.2)
== END 2021-05-18 14:19 | disposition home or self-care (01) ==
LOC: ER 12:23
PROVIDERS: Emergency Medicine
DX: U07.1 COVID-19 (principal); J44.1 Chronic obstructive pulmonary disease with (acute) exacerbation; I48.91 Unspecified atrial fibrillation; I10 Essential (primary) hypertension; Z79.01 Long term (current) use of anticoagulants; Z79.899 Other long term (current) drug therapy; Z88.1 Allergy status to other antibiotic agents
CPT/HCPCS: 36415; 80053; 83880; 84484; 85025; 93005; 93010; 96374; 99285-25; J2930

== ENCOUNTER 2021-05-20 11:46 | Emergency (ER) | payer OTHER ==
[~2021-05-20] VITALS: Ht 180.3 cm; Wt 104.3 kg
== END 2021-05-20 14:00 | disposition home or self-care (01) ==
LOC: ER 11:46
DX: U07.1 COVID-19 (principal); R55 Syncope and collapse; I10 Essential (primary) hypertension; J44.9 Chronic obstructive pulmonary disease, unspecified; Z87.891 Personal history of nicotine dependence; Z79.899 Other long term (current) drug therapy; Z79.01 Long term (current) use of anticoagulants; Z88.8 Allergy status to other drugs, medicaments and biological substances
CPT/HCPCS: 36415; 93005; 93010; 99284-25

== ENCOUNTER 2021-05-22 08:56 | Inpatient (IN) | payer OTHER ==
[~2021-05-22] VITALS: Ht 172.7 cm; Wt 109.8 kg
[2021-05-22 10:54] LABS: BASOPHILS ABSOLUTE AUTO 0.05 K/mm3 (0.00-0.23); BASOPHILS PERCENT AUTO 0 % (0-2); EOSINOPHILS ABSOLUTE AUTO 0.06 K/mm3 (0.00-0.68); EOSINOPHILS PERCENT AUTO 0 % (0-6); Hematocrit 34.6 % (37.0-53.0); Hemoglobin 10.8 g/dL (13.5-17.5); IMMATURE GRAN ABSOLUTE AUTO 0.11 K/mm3 (0.00-0.10); IMMATURE GRAN PERCENT AUTO 1 % (0-1); LYMPHOCYTES ABSOLUTE AUTO 0.35 K/mm3 (0.84-5.20); LYMPHOCYTES PERCENT AUTO 2 % (21-46); MONOCYTES ABSOLUTE AUTO 0.98 K/mm3 (0.16-1.47); MONOCYTES PERCENT AUTO 7 % (4-13); Mean Corpuscular HGB 30.8 pg (26.0-34.0); Mean Corpuscular HGB Conc 31.2 g/dL (31.5-36.5); Mean Corpuscular Volume 99 fL (80-100); NEUTROPHILS ABSOLUTE AUTO 12.97 K/mm3 (1.96-9.15); NEUTROPHILS PERCENT AUTO 89 % (41-73); Platelet Count 236 K/mm3 (150-400); RDW Coefficient Variation 14.6 % (11.7-14.2); RDW Standard Deviation 53.2 fL (35.1-46.3); Red Blood Cell Count 3.51 M/mm3 (4.30-5.90); White Blood Cell Count 14.52 K/mm3 (4.00-11.30)
[2021-05-22 11:13] LABS: Alanine Aminotransfer (ALT/SGP 27 U/L (12-78); Albumin, Blood 2.7 g/dL (3.4-5.0); Albumin/Globulin Ratio 0.6 (0.8-1.8); Alk Phos 170 U/L (50-136); Anion Gap 2 mmol/L (6-16); Aspartate Aminotrans (AST/SGOT 18 U/L (12-37); Bilirubin, Total 0.8 mg/dL (0.1-1.0); Blood Urea Nitrogen 15 mg/dL (8-24); Bun/Creatinine Ratio 33.8 (12.0-20.0); CO2, Blood 37 mmol/L (21-32); Calcium, Blood 9.2 mg/dL (8.5-10.1); Chloride, Blood 97 mmol/L (98-108); Creatinine, Blood 0.44 mg/dL (0.60-1.20); Globulin, Blood 4.9 g/dL (2.2-4.0); Glomerular Filtration Rate >60 (60-); Glucose, Blood 137 mg/dL (70-99); Magnesium, Blood 2.3 mg/dL (1.6-2.4); Sodium, Blood 136 mmol/L (136-145); Total Protein, Blood 7.6 g/dL (6.4-8.2)
[2021-05-22 12:31] LABS: PCO2 Arterial 68.8 mmHg (35-45); PO2 Arterial 83.1 mmHg (80-100); pH Blood Arterial 7.36 (7.35-7.45)
--- NOTE | 2021-05-22 14:45 | NUR ---
PT ARRIVED FROM ER VIA GURNEY, TRANSFERRED TO BED USING SLIDE SHEET. PT WAS ACCOMPANIED BY NEMATOLOGIST, ADMISSION STARTED. CT IS -PE. REPORT FROM ER PT WAS ON BI-PAP, REPIRATORY PLACED ON AIR VO AT 50L/30%, SATTING IN 90'S. SPEECH IS GARBLED AND HARD TO UNDERSTAND. TELE IS SHOWING AFIB. CALL CLOUD IN REACH, WILL MONITOR.
[2021-05-23 03:59] LABS: BASOPHILS ABSOLUTE AUTO 0.03 K/mm3 (0.00-0.23); BASOPHILS PERCENT AUTO 0 % (0-2); EOSINOPHILS ABSOLUTE AUTO 0.02 K/mm3 (0.00-0.68); EOSINOPHILS PERCENT AUTO 0 % (0-6); Hematocrit 36.8 % (37.0-53.0); Hemoglobin 11.3 g/dL (13.5-17.5); IMMATURE GRAN ABSOLUTE AUTO 0.12 K/mm3 (0.00-0.10); IMMATURE GRAN PERCENT AUTO 1 % (0-1); LYMPHOCYTES ABSOLUTE AUTO 0.66 K/mm3 (0.84-5.20); LYMPHOCYTES PERCENT AUTO 4 % (21-46); MONOCYTES PERCENT AUTO 5 % (4-13); Mean Corpuscular HGB 30.4 pg (26.0-34.0); Mean Corpuscular HGB Conc 30.7 g/dL (31.5-36.5); Mean Corpuscular Volume 99 fL (80-100); Mean Platelet Volume 9.6 fL (9.1-12.4); NEUTROPHILS ABSOLUTE AUTO 13.52 K/mm3 (1.96-9.15); NEUTROPHILS PERCENT AUTO 89 % (41-73); Platelet Count 245 K/mm3 (150-400); RDW Coefficient Variation 14.6 % (11.7-14.2); RDW Standard Deviation 53.5 fL (35.1-46.3); Red Blood Cell Count 3.72 M/mm3 (4.30-5.90); White Blood Cell Count 15.15 K/mm3 (4.00-11.30)
[2021-05-23 04:13] LABS: Alanine Aminotransfer (ALT/SGP 29 U/L (12-78); Albumin, Blood 2.6 g/dL (3.4-5.0); Albumin/Globulin Ratio 0.5 (0.8-1.8); Alk Phos 183 U/L (50-136); Anion Gap 5 mmol/L (6-16); Aspartate Aminotrans (AST/SGOT 20 U/L (12-37); Bilirubin, Total 0.6 mg/dL (0.1-1.0); Blood Urea Nitrogen 17 mg/dL (8-24); CO2, Blood 36 mmol/L (21-32); Calcium, Blood 9.1 mg/dL (8.5-10.1); Chloride, Blood 97 mmol/L (98-108); Creatinine, Blood 0.55 mg/dL (0.60-1.20); Globulin, Blood 5.1 g/dL (2.2-4.0); Glomerular Filtration Rate >60 (60-); Glucose, Blood 125 mg/dL (70-99); Potassium, Blood 4.5 mmol/L (3.5-5.5); Sodium, Blood 138 mmol/L (136-145); Total Protein, Blood 7.7 g/dL (6.4-8.2)
--- NOTE | 2021-05-23 07:06 | NUR ---
SHIFT SUMMARY PT ORIENTED X4, SLEPT WELL OVERNIGHT. VSS PER PT TREND, LUNGS COARSE/DIM, NON PRODUCTIVE COUGH, RT GAVE NEB TX WITH RELIEF. TITRATED UP ON AIRVO PER RT. INCONT X2 CHANGED BRIEF X2, RAC IV NOTED TO HAVE INFILTRATION OF AZITHROMYCIN, RED AND SWOLLEN. IV REMOVED, PHARMACY AND MD NOTIFED, WARM COMPRESS PER PHARMACY APPLIED. WILL PASS ON TO DAY RN
--- NOTE | 2021-05-23 13:09 | NUR ---
PT HAS BEEN ALERT, ORIENTED TO SELF AND LOCATION. PT ASKED SAME QUESTION REPEATEDLY, DOES NOT APPEAR TO RETAIN INFORMATION. PT IS DEVELOPMENTALLY DELAYED AT BASELINE. AIRVO IN PLACE. AUDIBLE WHEEZING NOTED ON ENTERING ROOM BUT PT DOES NOT APPEAR IN DISTRESS AND DOES NOT COMPLAIN OF SOB. WILL CONTINUE TO MONITOR. SPOKE WITH PT'S CAREGIVER VANIA ON THE PHONE TO UPDATE ON PT'S STATUES.
[2021-05-23 14:48] LABS: Source, Urine Voided
[2021-05-23 14:53] LABS: Bilirubin, Urine Neg (Neg); Blood, Urine Neg (Neg); Glucose Qualitative, Urine Neg (Neg); Ketones, Urine Neg (Neg); Leukocyte Esterase, Urine Neg (Neg); Nitrite, Urine Neg (Neg); Protein, Urine 1+ (Neg); Urobilinogen, Urine NORM (Normal); pH, Urine 6.5 (5.0-8.0)
[2021-05-23 15:03] LABS: Appearance, Urine Cloudy (Clear); Color, Urine Pale Yellow (P-Yellow)
[2021-05-23 15:04] LABS: Bacteria Rare /hpf; Red Blood Cells, Urine 0-2 /hpf (0-2); Squamous Epithelial Cells Rare /hpf (Few); White Blood Cells, Urine 0-2 /hpf (0-5)
[2021-05-23 15:05] LABS: Amorphous Light (0-Heavy)
--- NOTE | 2021-05-23 18:30 | NUR ---
PT CONTINUES TO SIT UP IN BED WITH AIRVO 40L/40% O2 WITH SATS AT 94%. PT LUNGS CONTINUES TO BE COARSE AND HAVE AUDIBLE WHEEZE WHEN ENTERING ROOM. PT SITTING UP IN BED WATCHING TV. ABLE TO VOID IN URINAL WHEN INSTRUCTED TO DO SO. PT ASSISTED TO EAT DINNER BY MELANIE AGUILAR.
[2021-05-24 04:07] LABS: BASOPHILS ABSOLUTE AUTO 0.03 K/mm3 (0.00-0.23); BASOPHILS PERCENT AUTO 0 % (0-2); EOSINOPHILS ABSOLUTE AUTO 0.09 K/mm3 (0.00-0.68); EOSINOPHILS PERCENT AUTO 1 % (0-6); Hematocrit 33.9 % (37.0-53.0); Hemoglobin 10.4 g/dL (13.5-17.5); IMMATURE GRAN PERCENT AUTO 1 % (0-1); LYMPHOCYTES PERCENT AUTO 5 % (21-46); MONOCYTES ABSOLUTE AUTO 0.59 K/mm3 (0.16-1.47); MONOCYTES PERCENT AUTO 4 % (4-13); Mean Corpuscular HGB 30.3 pg (26.0-34.0); Mean Corpuscular HGB Conc 30.7 g/dL (31.5-36.5); Mean Corpuscular Volume 99 fL (80-100); Mean Platelet Volume 8.9 fL (9.1-12.4); NEUTROPHILS ABSOLUTE AUTO 11.96 K/mm3 (1.96-9.15); NEUTROPHILS PERCENT AUTO 90 % (41-73); Platelet Count 235 K/mm3 (150-400); RDW Coefficient Variation 14.8 % (11.7-14.2); RDW Standard Deviation 53.5 fL (35.1-46.3); Red Blood Cell Count 3.43 M/mm3 (4.30-5.90); White Blood Cell Count 13.37 K/mm3 (4.00-11.30)
[2021-05-24 04:19] LABS: International Normalized Ratio 1.17; Prothrombin Time Results 12.2 Sec (9.7-11.5)
[2021-05-24 04:24] LABS: Alanine Aminotransfer (ALT/SGP 27 U/L (12-78); Albumin, Blood 2.4 g/dL (3.4-5.0); Albumin/Globulin Ratio 0.5 (0.8-1.8); Alk Phos 159 U/L (50-136); Anion Gap 2 mmol/L (6-16); Aspartate Aminotrans (AST/SGOT 22 U/L (12-37); Bilirubin, Total 0.9 mg/dL (0.1-1.0); Blood Urea Nitrogen 21 mg/dL (8-24); CO2, Blood 37 mmol/L (21-32); Calcium, Blood 8.6 mg/dL (8.5-10.1); Chloride, Blood 100 mmol/L (98-108); Creatinine, Blood 0.51 mg/dL (0.60-1.20); Globulin, Blood 4.6 g/dL (2.2-4.0); Glomerular Filtration Rate >60 (60-); Glucose, Blood 129 mg/dL (70-99); Magnesium, Blood 2.4 mg/dL (1.6-2.4); Potassium, Blood 4.3 mmol/L (3.5-5.5); Sodium, Blood 139 mmol/L (136-145)
--- NOTE | 2021-05-24 06:44 | NUR ---
ASSUMED CARE OF PT AT 1910. PT SLEPT WELL OVERNIGHT, VSS PER PT TREND. NO ACUTE CHANGES. PT ON AIRVO 40/40 PER RT MANAGEMENT. WILL PASS ON TO DAY RN.
[2021-05-24 10:48] LABS: Source, Urine Foley catheter
[2021-05-24 10:51] LABS: Appearance, Urine Clear (Clear); Bilirubin, Urine Neg (Neg); Blood, Urine Neg (Neg); Color, Urine Yellow (P-Yellow); Glucose Qualitative, Urine Neg (Neg); Ketones, Urine Neg (Neg); Leukocyte Esterase, Urine Neg (Neg); Nitrite, Urine Neg (Neg); Protein, Urine Neg (Neg); Urobilinogen, Urine NORM (Normal)
--- NOTE | 2021-05-24 18:16 | NUR ---
PT SUMMARY: PT WITH HX OF DEV DELAY, HAS GARBLED SPEECH, ABLE TO STATE NAME AND . VITALS HRR AFIB 110'S, BP SYSTOLIC 120-140'S, PT TRANSITIONED TO REGULAR NC AT 4L SATS REMAINED ABOVE 90% WILL DESAT TO 86% WITH EXERTION, AFEBRILE. PT WAS INCONTINENT, BLADDER SCAN PERFORMED PT WAS RETAINING LAST ADMISSION PT HAD >999MLS RETAINED URINE IN THE SCAN, ORDER FOR MÁRQUEZ RECEIVED MÁRQUEZ WAS PLACED PT DRAINED 1000MLS OF URINE OUT, UA SENT TO LAB. PT ALSO HAD COUGHING SPITS WHILE EATING HIS LUNCH PT WAS GETTING REGULAR DIET AND DENTURES WAS NOT ON PT ADVISED NOT TO EAT HIS APPLES IT WILL BE HARD FOR HIM TO CHEW IT WITHOUT DENTURES PT TOOK A BITE AND STARTED COUGHING PT DESATTED TO LOW 80'S DUE TO COUGHING SPITS PT WAS SUCTIONED AND WAS ABLE TO SPIT THE FOOD OUT. DENTURES WAS FOUND IN THE YELLOW CONTAINER IN THE ROOM AFTER CONFIRMING WITH THE CAREGIVER WHERE THE DENTURES AT, DIET SWITCHED TO MECHANICAL SOFT, NO ISSUES WITH DINNER MEAL. PT STILL HAS MOIST COUGH SUCTIONED PRN, BREATHING TX PER RT. PT DENIES ANY PAIN/DISCOMFORT, REPOSITIONED IN BED. NO OTHER ISSUES REPORTED, CALL LIGHTS IN REACH WILL MONITOR
[2021-05-25 03:42] LABS: BASOPHILS ABSOLUTE AUTO 0.02 K/mm3 (0.00-0.23); BASOPHILS PERCENT AUTO 0 % (0-2); EOSINOPHILS ABSOLUTE AUTO 0.12 K/mm3 (0.00-0.68); EOSINOPHILS PERCENT AUTO 1 % (0-6); Hematocrit 35.1 % (37.0-53.0); Hemoglobin 10.7 g/dL (13.5-17.5); IMMATURE GRAN ABSOLUTE AUTO 0.11 K/mm3 (0.00-0.10); IMMATURE GRAN PERCENT AUTO 1 % (0-1); LYMPHOCYTES ABSOLUTE AUTO 0.65 K/mm3 (0.84-5.20); LYMPHOCYTES PERCENT AUTO 6 % (21-46); MONOCYTES ABSOLUTE AUTO 0.52 K/mm3 (0.16-1.47); MONOCYTES PERCENT AUTO 5 % (4-13); Mean Corpuscular HGB 30.1 pg (26.0-34.0); Mean Corpuscular HGB Conc 30.5 g/dL (31.5-36.5); Mean Corpuscular Volume 99 fL (80-100); Mean Platelet Volume 8.7 fL (9.1-12.4); NEUTROPHILS ABSOLUTE AUTO 9.26 K/mm3 (1.96-9.15); NEUTROPHILS PERCENT AUTO 87 % (41-73); Platelet Count 236 K/mm3 (150-400); RDW Coefficient Variation 14.7 % (11.7-14.2); RDW Standard Deviation 53.6 fL (35.1-46.3); Red Blood Cell Count 3.55 M/mm3 (4.30-5.90); White Blood Cell Count 10.68 K/mm3 (4.00-11.30)
[2021-05-25 04:09] LABS: Anion Gap 3 mmol/L (6-16); Blood Urea Nitrogen 21 mg/dL (8-24); Bun/Creatinine Ratio 40.2 (12.0-20.0); CO2, Blood 38 mmol/L (21-32); Chloride, Blood 98 mmol/L (98-108); Creatinine, Blood 0.52 mg/dL (0.60-1.20); Glomerular Filtration Rate >60 (60-); Glucose, Blood 115 mg/dL (70-99); Potassium, Blood 4.5 mmol/L (3.5-5.5); Sodium, Blood 139 mmol/L (136-145)
--- NOTE | 2021-05-25 05:52 | NUR ---
ASSUMED CARE OF PT AT 1900. PT ORIENTED X4 OVERNIGHT, NO COMPLAINTS OF PAIN. VSS PER PT TREND. ON 4-5L NC. LUNGS DIM W/CRACKLES/WHEEZES IN BASES. AFIB IN 110S ON TELEMETRY. ADEQUATE DONNELL UOP PER YULISA. PT Q2 TURN. NO COMPLAINTS OF PAIN. BED ALARM SET, BELONGINGS WITHIN REACH. WILL PASS ON TO DAY RN
--- NOTE | 2021-05-25 18:52 | NUR ---
PT SUMMARY: NO ACUTE CHANGE FOR THE SHIFT. VITALS REMAINED STABLE PT WAS DOWN TO 3L OF O2 FOR THE SHIFT SATS KEPT ABOVE 92%. PT STILL PCU STATUS, TELE ORDER DC'D. CAREGIVER FRANCISCO CAME IN TO VISIT PT AND WAS GIVEN UPDATE. PT TO HAVE SWALLOW EVAL DONE IN AM, DR LEONARDO DUQUE TO KEEP PT ON [facility] SOFT DIET FOR NOW, NO ISSUES WITH MEALS FOR THE SHIFT. DENIES ANY PAIN OR DISCOMFORT. MÁRQUEZ DRAINING PATENT VIA GRAVITY. REPOSITIONED IN BED FOR COMFORT. CALL LIGHTS IN REACH WILL MONITOR
[2021-05-26 04:24] LABS: BASOPHILS ABSOLUTE AUTO 0.02 K/mm3 (0.00-0.23); BASOPHILS PERCENT AUTO 0 % (0-2); EOSINOPHILS PERCENT AUTO 1 % (0-6); Hematocrit 34.6 % (37.0-53.0); Hemoglobin 10.9 g/dL (13.5-17.5); IMMATURE GRAN ABSOLUTE AUTO 0.13 K/mm3 (0.00-0.10); IMMATURE GRAN PERCENT AUTO 1 % (0-1); LYMPHOCYTES ABSOLUTE AUTO 0.75 K/mm3 (0.84-5.20); LYMPHOCYTES PERCENT AUTO 7 % (21-46); MONOCYTES ABSOLUTE AUTO 0.47 K/mm3 (0.16-1.47); MONOCYTES PERCENT AUTO 5 % (4-13); Mean Corpuscular HGB 30.4 pg (26.0-34.0); Mean Corpuscular HGB Conc 31.5 g/dL (31.5-36.5); Mean Corpuscular Volume 97 fL (80-100); Mean Platelet Volume 8.7 fL (9.1-12.4); NEUTROPHILS ABSOLUTE AUTO 8.79 K/mm3 (1.96-9.15); NEUTROPHILS PERCENT AUTO 86 % (41-73); Platelet Count 260 K/mm3 (150-400); RDW Coefficient Variation 14.6 % (11.7-14.2); RDW Standard Deviation 51.8 fL (35.1-46.3); Red Blood Cell Count 3.58 M/mm3 (4.30-5.90); White Blood Cell Count 10.26 K/mm3 (4.00-11.30)
[2021-05-26 04:42] LABS: Alanine Aminotransfer (ALT/SGP 28 U/L (12-78); Albumin, Blood 2.3 g/dL (3.4-5.0); Albumin/Globulin Ratio 0.5 (0.8-1.8); Alk Phos 147 U/L (50-136); Anion Gap 4 mmol/L (6-16); Aspartate Aminotrans (AST/SGOT 17 U/L (12-37); Bilirubin, Total 0.5 mg/dL (0.1-1.0); Blood Urea Nitrogen 20 mg/dL (8-24); Bun/Creatinine Ratio 46.7 (12.0-20.0); CO2, Blood 37 mmol/L (21-32); Calcium, Blood 8.6 mg/dL (8.5-10.1); Chloride, Blood 97 mmol/L (98-108); Creatinine, Blood 0.43 mg/dL (0.60-1.20); Globulin, Blood 4.5 g/dL (2.2-4.0); Glomerular Filtration Rate >60 (60-); Glucose, Blood 117 mg/dL (70-99); Potassium, Blood 4.3 mmol/L (3.5-5.5); Sodium, Blood 138 mmol/L (136-145); Total Protein, Blood 6.8 g/dL (6.4-8.2)
--- NOTE | 2021-05-26 05:12 | NUR ---
SHIFT SUMMARY PCU NO TELE STATUS. PATIENT ALERT AND ORIENTED x2, SEEMS TO BE AT BASELINE. VSS, ON 3L NC T/O NIGHT WITH O2 SAT >90%. DENIES CHEST PAIN OR SOB THIS SHIFT. MÁRQUEZ IN PLACE DRAINING DARK YELLOW URINE TO GRAVITY. PATIENT WAS GIVEN SUPPOSITORY WITH SUCCESSFUL BM. DENIES PAIN OR ANY DISCOMFORT. REPOSITIONED TOLERATED FOR COMFORT. BED IN LOW POSITION, CALL LIGHT IN REACH. WILL REPORT TO DAY SHIFT RN.
[2021-05-26] MEDS ORDERED: ASCORBIC ACID500 MG PO (14:07)
[2021-05-26] MEDS ORDERED: CEPH500 PO (14:07)
[2021-05-26] MEDS ORDERED: XARELTO10 M1 PO (14:08)
[2021-05-26] MEDS ORDERED: PRED20 PO (14:10)
[2021-05-26] MEDS ORDERED: ONDA4ODT MM (14:10)
[2021-05-26] MEDS ORDERED: VITAMIN D5000 UNIT PO (14:11)
[2021-05-26] MEDS ORDERED: PROBIOTIC1 EA13 PO (14:11)
[2021-05-26] MEDS ORDERED: ZINC220 PO (14:12)
--- NOTE | 2021-05-26 15:44 | NUR ---
PT DISCARGE BACK TO [facility] TODAY WITH DISCHARGE ORDERS, HOME O2 EVAL DONE PT REQUIRING 4L OF O2 WITH EXERTION 2L AT REST. VITALS HAS BEEN STABLE FOR THE SHIFT, NO OTHER ISSUES REPORTED. YULISA WAS DC'D, POWERGLIDE WAS PULLED. INDU CAREGIVER FROM [place] CAME IN TO CHALK MACHINE OPERATOR PT. OCTAVE BOARD RACKER WAS ABLE TO DISCLOSED DISCHARGE MEDICATIONS AND INSTRUCTIONS WITH THE CAREGIVER. PT WAS TRANSPORTED VIA WHEELCHAIR, ALL BELONGINGS SENT WITH THE PT.
[2021-05-27] MEDS ORDERED: ALBU90OI INH (01:26)
== END 2021-05-26 15:43 | disposition home health service (06) | DRG 177 ==
LOC: ER 08:56 → PCU 13:17
PROVIDERS: Family Medicine; Physician Assistant; ADMIT Internal Medicine
PROC: 8E0ZXY6 Isolation (ICD-10-PCS; principal; 2021-05-22)
PROC: 3E0333Z Introduction of Anti-inflammatory into Peripheral Vein, Percutaneous Approach (ICD-10-PCS; 2021-05-22)
PROC: XW033E5 Introduction of Remdesivir Anti-infective into Peripheral Vein, Percutaneous Approach, New Technology Group 5 (ICD-10-PCS; 2021-05-22)
PROC: 5A0945A Assistance with Respiratory Ventilation, 24-96 Consecutive Hours, High Flow/Velocity Cannula (ICD-10-PCS; 2021-05-22)
PROC: 5A09457 Assistance with Respiratory Ventilation, 24-96 Consecutive Hours, Continuous Positive Airway Pressure (ICD-10-PCS; 2021-05-22)
DX: U07.1 COVID-19 (principal); J12.82 Pneumonia due to coronavirus disease 2019; J10.01 Influenza due to other identified influenza virus with the same other identified influenza virus pneumonia; I50.33 Acute on chronic diastolic (congestive) heart failure; J96.21 Acute and chronic respiratory failure with hypoxia; J15.9 Unspecified bacterial pneumonia; J44.1 Chronic obstructive pulmonary disease with (acute) exacerbation; J44.0 Chronic obstructive pulmonary disease with (acute) lower respiratory infection; G47.30 Sleep apnea, unspecified; I48.91 Unspecified atrial fibrillation; I10 Essential (primary) hypertension; G40.909 Epilepsy, unspecified, not intractable, without status epilepticus; D64.9 Anemia, unspecified; E66.9 Obesity, unspecified; F20.9 Schizophrenia, unspecified; L40.9 Psoriasis, unspecified; Z68.37 Body mass index [BMI] 37.0-37.9, adult; Z98.890 Other specified postprocedural states
CPT/HCPCS: 36415; 36600; 51702; 71260; 80048; 80053; 81001; 81003; 82803; 83605; 83735; 83880; 84145; 84484; 85025; 85610; 86140; 87040; 92610; 93005; 93010; 94640; 94644; 94761; 94762; 96365-59; 96366; 96367; 96372; 96375-59; 96376; 99285-25; A9270; C1751; G0378; J0248; J0456; J0696; J1650; J1940; J1956; J2930; J7050; Q9967

== ENCOUNTER → 2021-09-22 | Outpatient (CLI) | payer OTHER ==
[~2021-09-22] MED LIST changes: +ALBU90OI INH; +ASCORBIC ACID500 MG PO; +ONDA4ODT MM; +PRED20 PO; +PROBIOTIC1 EA13 PO; +VITAMIN D5000 UNIT PO; +XARELTO10 M1 PO; +ZINC220 PO
== END ==
LOC: LAB SHORT 16:55 → LAB 16:55
DX: R41.3 Other amnesia (principal); Z91.89 Other specified personal risk factors, not elsewhere classified
CPT/HCPCS: 87086

== ENCOUNTER → 2021-10-02 | Outpatient (CLI) | payer OTHER ==
[~2021-10-02] MED LIST changes: +Acetaminophen325 M1 PO; +DULCOLAX400 MG/5 M PO; +Fleet Enema132 ML PR; +LACT10SY PO; +LAMOTRIGINE OD100 MG PO; +LEVE500 PO; +PHENO30 PO; +Q-Tussin100 MG/5 M PO; +SILVADENE20 G1 TOP; +Triple Antibi28.4 G1 TOP; +[UNRECOGNIZED DRUG - OTHER] TOP
[2021-10-02 16:40] LABS: Source, Urine Voided
[2021-10-02 18:55] LABS: Appearance, Urine Hazy (Clear); Bilirubin, Urine Neg (Neg); Blood, Urine 1+ (Neg); Color, Urine Amber (P-Yellow); Glucose Qualitative, Urine Neg (Neg); Ketones, Urine Neg (Neg); Leukocyte Esterase, Urine 1+ (Neg); Nitrite, Urine Neg (Neg); Protein, Urine 2+ (Neg); Urobilinogen, Urine 1+ (Normal)
[2021-10-02 19:33] LABS: Bacteria Mod /hpf; Granular Casts 0-2 /lpf (0); Squamous Epithelial Cells Few /hpf (Few)
[2021-10-02 19:34] LABS: Red Blood Cells, Urine 0-2 /hpf (0-2)
== END | disposition home or self-care (01) ==
LOC: LAB 16:00 → LAB SHORT 16:00
PROVIDERS: Family Medicine
DX: N39.42 Incontinence without sensory awareness (principal); R41.0 Disorientation, unspecified; R41.4 Neurologic neglect syndrome; N32.81 Overactive bladder
CPT/HCPCS: 81001; 87086

== ENCOUNTER 2021-10-21 09:26 | Observation (INO) | payer OTHER ==
[~2021-10-21] VITALS: Ht 165.1 cm; Wt 114.3 kg
[~2021-10-21 09:26] MED LIST changes: -Acetaminophen325 M1 PO; -DULCOLAX400 MG/5 M PO; -Fleet Enema132 ML PR; -LACT10SY PO; -LAMOTRIGINE OD100 MG PO; -LEVE500 PO; -PHENO30 PO; -Q-Tussin100 MG/5 M PO; -SILVADENE20 G1 TOP; -Triple Antibi28.4 G1 TOP; -[UNRECOGNIZED DRUG - OTHER] TOP
[2021-10-21 10:07] LABS: BASOPHILS ABSOLUTE AUTO 0.09 K/mm3 (0.00-0.23); BASOPHILS PERCENT AUTO 1 % (0-2); EOSINOPHILS ABSOLUTE AUTO 0.19 K/mm3 (0.00-0.68); EOSINOPHILS PERCENT AUTO 2 % (0-6); Hematocrit 41.6 % (37.0-53.0); Hemoglobin 13.8 g/dL (13.5-17.5); IMMATURE GRAN ABSOLUTE AUTO 0.02 K/mm3 (0.00-0.10); IMMATURE GRAN PERCENT AUTO 0 % (0-1); LYMPHOCYTES ABSOLUTE AUTO 1.03 K/mm3 (0.84-5.20); LYMPHOCYTES PERCENT AUTO 13 % (21-46); MONOCYTES PERCENT AUTO 10 % (4-13); Mean Corpuscular HGB 30.7 pg (26.0-34.0); Mean Corpuscular HGB Conc 33.2 g/dL (31.5-36.5); Mean Corpuscular Volume 93 fL (80-100); NEUTROPHILS ABSOLUTE AUTO 5.99 K/mm3 (1.96-9.15); NEUTROPHILS PERCENT AUTO 74 % (41-73); RDW Coefficient Variation 14.1 % (11.7-14.2); RDW Standard Deviation 48.4 fL (35.1-46.3); Red Blood Cell Count 4.49 M/mm3 (4.30-5.90); White Blood Cell Count 8.12 K/mm3 (4.00-11.30)
[2021-10-21 10:27] LABS: Albumin, Blood 3.5 g/dL (3.4-5.0); Albumin/Globulin Ratio 0.8 (0.8-1.8); Bilirubin, Total 1.1 mg/dL (0.1-1.0); Bun/Creatinine Ratio 34.5 (12.0-20.0); Calcium, Blood 9.4 mg/dL (8.5-10.1); Creatinine, Blood 0.61 mg/dL (0.60-1.20); Globulin, Blood 4.6 g/dL (2.2-4.0); Magnesium, Blood 2.1 mg/dL (1.6-2.4); Potassium, Blood 3.4 mmol/L (3.5-5.5); Thyroid Stimulating Hormone 3.55 uIU/mL (0.360-4.800); Total Protein, Blood 8.1 g/dL (6.4-8.2)
[2021-10-21 10:32] LABS: Mean Platelet Volume 9.4 fL (9.1-12.4); Platelet Count 281 K/mm3 (150-400)
[2021-10-21 11:23] LABS: Influenza A, PCR NEGATIVE (NEGATIVE); Influenza B, PCR NEGATIVE (NEGATIVE); Resp Syncytial Virus, PCR NEGATIVE (NEGATIVE); SARS-Cov-2 (COVID-19) PCR, MMC NEGATIVE (NEGATIVE)
[2021-10-21] MEDS ORDERED: LEVE500 PO (16:37)
[2021-10-21] MEDS ORDERED: CLOP75 PO (16:40)
[2021-10-21] MEDS ORDERED: LACT10SY PO (16:50)
--- NOTE | 2021-10-21 18:43 | NUR ---
PT ARRIVED TO THE MEDICAL FLOOR AROUND 1530 FROM THE ER VIA GURNEY. PT IS PLEASNT MENTALY DELAYED. PT S STRAWHAT INSPECTOR AND PACKER ARRIVED TO THE ROOM WITH THE PATIENT. THE PT APPEARS TO BE BREATHING EASILY ON RA AT THIS TIME. THE PT AND STRAWHAT INSPECTOR AND PACKER WERE ORIENTED TO THE ROOM LAYOUT AND CALL SYSTEM. TELE WAS APPLIED. THE PT EVENTUALLY STARTED TO PULL AT HIS IV AND PULLED THE TUBING APART AND PULLED HIS TELE OFF AND THREW IT ON THE FLOOR THEN WAS ATTEMPTING TO CLIMB OUT OF BED AND WAS NOT EASILY REDIRECTED. WRIST RESTRAINTS WERE APPLIED. PT AT THIS TIME IS CALM CAREGIVER AT THE BEDSIDE. REPORT GIVEN TO NOC SHIFT RN
[2021-10-22 04:44] LABS: Hematocrit 41.9 % (37.0-53.0); Hemoglobin 13.3 g/dL (13.5-17.5); Mean Corpuscular HGB 30.2 pg (26.0-34.0); Mean Corpuscular HGB Conc 31.7 g/dL (31.5-36.5); Mean Corpuscular Volume 95 fL (80-100); Mean Platelet Volume 9.1 fL (9.1-12.4); Platelet Count 241 K/mm3 (150-400); RDW Coefficient Variation 14.2 % (11.7-14.2); RDW Standard Deviation 49.3 fL (35.1-46.3); Red Blood Cell Count 4.41 M/mm3 (4.30-5.90); White Blood Cell Count 6.97 K/mm3 (4.00-11.30)
[2021-10-22 05:07] LABS: Bun/Creatinine Ratio 32.6 (12.0-20.0); Calcium, Blood 8.9 mg/dL (8.5-10.1); Creatinine, Blood 0.61 mg/dL (0.60-1.20); Potassium, Blood 3.2 mmol/L (3.5-5.5)
--- NOTE | 2021-10-22 05:25 | NUR ---
SHIFT SUMMARY PT AWAKE AND ALERT THIS EVENING. CAREGIVER REPORTS THAT PT IS CLOSE TO BASELINE MENTATION. PT ANSWERING QUESTIONS APPROPRIATELY. SPEECH SOMEWHAT SLURRED AT TIMES. PT IS DEVELOPMENTALLY DELAYED. PLEASANT AND COOPERATIVE. REMAINED IN BED THROUGHOUT THE NIGHT. ABLE TO ASSIST WITH TURNING. CONTINENT. PT DID NOT VOID THROUGHOUT THE SHIFT, FINALLY VOIDING THIS AM A LARGE AMOUNT. URINE SPECIMENT SENT TO LAB. NO SEIZURE LIKE ACTIVITY. VITAL SIGNS STABLE. NO COMPLAINTS OF PAIN. CAREGIVER AT BEDSIDE THROUGHOUT THE NIGHT. WILL CONTINUE TO MONITOR.
[2021-10-22 05:40] LABS: Source, Urine Clean Catch
[2021-10-22 05:45] LABS: Appearance, Urine Clear (Clear); Bilirubin, Urine Neg (Neg); Blood, Urine Neg (Neg); Color, Urine Yellow (P-Yellow); Glucose Qualitative, Urine Neg (Neg); Ketones, Urine Neg (Neg); Leukocyte Esterase, Urine Neg (Neg); Nitrite, Urine Neg (Neg); Protein, Urine Neg (Neg); Specific Gravity, Urine 1.015 (1.003-1.022); Urobilinogen, Urine 1+ (Normal); pH, Urine 6.5 (5.0-8.0)
--- NOTE | 2021-10-22 18:40 | NUR ---
PT IS ALERT. MENTALLY DELAYED. PT HAS A CAREGIVER AT THE BEDSIDE. PT APPEARS TO BE BREATHING EASILY ON O2 @ 2L/MIN. PT HAS BEEN BEDREST TODAY, ABLE TO REPOSITION HIMSELF. THE PT DENIED ANY PAIN, THE PT HAD NO WITNESSED SEIZURES TODAY. PT WAS COOPERATIVE WITH CARE AND VERY PLEASANT TODAY. CALL LIGHT IN REACH. WILL CONTINUE TO MONITOR AND ASSESS FOR CHANGES
--- NOTE | 2021-10-23 04:44 | NUR ---
SHIFT SUMMARY NO ACUTE CHANGES TO REPORT THIS SHIFT, PT HAS RESTED MOST OF THE NIGHT, NO ACUTE CHANGES IN ASSESSMENT. NO SEIZURE ACTIVITY, NEURO ASSESSMENT WNL. CAREGIVER AT BEDSIDE T/O SHIFT. PLAN IS FOR DC TODAY. BED IN LOWEST POSITION, CALL LIGHT WITHIN REACH.
[2021-10-23 05:18] LABS: Albumin, Blood 2.9 g/dL (3.4-5.0); Anion Gap 10 mmol/L (6-16); Blood Urea Nitrogen 25 mg/dL (8-24); Bun/Creatinine Ratio 30.8 (12.0-20.0); CO2, Blood 30 mmol/L (21-32); Calcium, Blood 8.2 mg/dL (8.5-10.1); Chloride, Blood 98 mmol/L (98-108); Creatinine, Blood 0.81 mg/dL (0.60-1.20); Glomerular Filtration Rate 94 (60-); Glucose, Blood 90 mg/dL (70-99); Phosphorus, Blood 3.8 mg/dL (2.5-4.9); Potassium, Blood 3.2 mmol/L (3.5-5.5); Sodium, Blood 138 mmol/L (136-145)
[2021-10-23] MEDS ORDERED: Acetaminophen325 M1 PO (11:51)
[2021-10-23] MEDS ORDERED: LAMOTRIGINE OD100 MG PO (11:52)
[2021-10-23] MEDS ORDERED: PHENO30 PO (11:53)
[2021-10-23] MEDS ORDERED: Q-Tussin100 MG/5 M PO (11:54)
[2021-10-23] MEDS ORDERED: DULCOLAX400 MG/5 M PO (11:54)
[2021-10-23] MEDS ORDERED: Triple Antibi28.4 G1 TOP (11:55)
[2021-10-23] MEDS ORDERED: SILVADENE20 G1 TOP (11:55)
[2021-10-23] MEDS ORDERED: [UNRECOGNIZED DRUG - OTHER] TOP (11:56)
[2021-10-23] MEDS ORDERED: Fleet Enema132 ML PR (11:56)
--- NOTE | 2021-10-23 14:10 | NUR ---
LATE ENTRY 1330: PT DC'D HOME TO [facility] WITH CAREGIVER PRESENT. DC INSTRUCTIONS GIVEN TO PT & CAREGIVER. PLACED CALL TO DR. LONDONO TO RECEIVE ORDERS FOR PT TO CONTINUE ALL HOME MEDS ALTHOUGH HE IS TO DISCONTINUE THE [place]. CAREGIVERS NOTIFIED AND AWARE. PIV DC'D WITH CATH TIP INTACT. NO REDNESS OR SWELLING AT SITE NOTED. PT HOME WITH ALL PERSONAL BELONGINGS. CAREGIVERS TO DRIVE PT HOME.
--- NOTE | 2021-10-23 14:10 | NUR ---
upon receiving a spiritual care referral, I visit pt. Pt tells me that he will d/c soon and that he is ecited to leave. He is so excited that he is attempting to stand up out of the wheelchair he is strapped into. I provide a calming presence, distraction techniques and a blessing. Pt responds well and is able to maintain until his CG is able to wheel him out of the building.
== END 2021-10-23 14:13 | disposition home or self-care (01) ==
LOC: ER 09:26 → MEDS 09:27
PROVIDERS: Internal Medicine; Nurse Practitioner Acute Care; Student in an Organized Health Care Education/Training Program; ADMIT Internal Medicine
DX: G40.409 Other generalized epilepsy and epileptic syndromes, not intractable, without status epilepticus (principal); E87.6 Hypokalemia; I11.0 Hypertensive heart disease with heart failure; I50.42 Chronic combined systolic (congestive) and diastolic (congestive) heart failure; E78.5 Hyperlipidemia, unspecified; I48.0 Paroxysmal atrial fibrillation; G47.33 Obstructive sleep apnea (adult) (pediatric); I73.9 Peripheral vascular disease, unspecified; F20.9 Schizophrenia, unspecified; F31.9 Bipolar disorder, unspecified; Z79.01 Long term (current) use of anticoagulants; Z88.1 Allergy status to other antibiotic agents; Z79.899 Other long term (current) drug therapy; Z20.822 Contact with and (suspected) exposure to COVID-19
CPT/HCPCS: 0241U; 36415; 80048; 80053; 80069; 80177; 81003; 82140; 82947; 83735; 84443; 85025; 85027; 93005; 93010; 94760; 96361; 96365; 96366; 96367; 96375; 99285-25; A9270; G0378; J1953; J2060; J3480; J7030

== ENCOUNTER 2022-01-11 18:33 | Observation (INO) | payer OTHER ==
[~2022-01-11] VITALS: Ht 185.4 cm; Wt 112.5 kg
[~2022-01-11 18:33] MED LIST changes: +ALBU2.5V5 INH; +ALBU90OI6 INH; +Acetaminophen325 M1 PO; +DULCOLAX400 MG/5 M PO; +Enulose10 GM/15 M PO; +Fleet Enema132 ML PR; +LACT10SY PO; +LAMO100; +LAMOTRIGINE OD100 MG PO; +LEVE500 PO; +MIRALAX1713 PO; +NYSTRIT TOP; +OXYM.05NI; +PEPTO BISMOL PO; +PHENO30 PO; +PHENOBARBITAL97.2 MG; +POTCHL20ER PO; +Q-Tussin100 MG/5 M PO; +SENNA LAXATIVE8.6 MG PO; +SILVADENE20 G1 TOP; +Triple Antibi28.4 G1 TOP; +XARELTO20 MG; +[UNRECOGNIZED DRUG - CODE] PO; +[UNRECOGNIZED DRUG - OTHER] TOP
[2022-01-11 21:17] LABS: BASOPHILS ABSOLUTE AUTO 0.08 K/mm3 (0.00-0.23); BASOPHILS PERCENT AUTO 1 % (0-2); EOSINOPHILS ABSOLUTE AUTO 0.41 K/mm3 (0.00-0.68); EOSINOPHILS PERCENT AUTO 5 % (0-6); Hematocrit 32.8 % (37.0-53.0); Hemoglobin 10.7 g/dL (13.5-17.5); IMMATURE GRAN ABSOLUTE AUTO 0.03 K/mm3 (0.00-0.10); IMMATURE GRAN PERCENT AUTO 0 % (0-1); LYMPHOCYTES ABSOLUTE AUTO 0.85 K/mm3 (0.84-5.20); LYMPHOCYTES PERCENT AUTO 10 % (21-46); MONOCYTES ABSOLUTE AUTO 0.93 K/mm3 (0.16-1.47); MONOCYTES PERCENT AUTO 11 % (4-13); Mean Corpuscular HGB 31.4 pg (26.0-34.0); Mean Corpuscular HGB Conc 32.6 g/dL (31.5-36.5); Mean Corpuscular Volume 96 fL (80-100); Mean Platelet Volume 9.4 fL (9.1-12.4); NEUTROPHILS ABSOLUTE AUTO 5.88 K/mm3 (1.96-9.15); NEUTROPHILS PERCENT AUTO 72 % (41-73); Platelet Count 216 K/mm3 (150-400); RDW Coefficient Variation 15.9 % (11.7-14.2); RDW Standard Deviation 56.2 fL (35.1-46.3); Red Blood Cell Count 3.41 M/mm3 (4.30-5.90); White Blood Cell Count 8.18 K/mm3 (4.00-11.30)
[2022-01-11 21:24] LABS: Base Excess Venous 10.3 mmol/L; PCO2 Venous 63.1 mmHg (38-42); pH Blood Venous 7.36 (7.34-7.37)
[2022-01-11 21:37] LABS: Albumin/Globulin Ratio 0.7 (0.8-1.8); Bilirubin, Total 1.2 mg/dL (0.1-1.0); Bun/Creatinine Ratio 18.5 (12.0-20.0); Calcium, Blood 8.8 mg/dL (8.5-10.1); Creatinine, Blood 0.65 mg/dL (0.60-1.20); Globulin, Blood 4.4 g/dL (2.2-4.0); Potassium, Blood 3.7 mmol/L (3.5-5.5); Total Protein, Blood 7.4 g/dL (6.4-8.2)
[2022-01-11 21:55] LABS: Source, Urine Clean Catch
[2022-01-11 21:57] LABS: Bilirubin, Urine Neg (Neg); Blood, Urine 1+ (Neg); Glucose Qualitative, Urine Neg (Neg); Ketones, Urine Neg (Neg); Leukocyte Esterase, Urine 1+ (Neg); Nitrite, Urine Neg (Neg); Protein, Urine 1+ (Neg); Specific Gravity, Urine 1.005 (1.003-1.022); Urobilinogen, Urine 2+ (Normal)
[2022-01-11 22:14] LABS: Influenza A, PCR NEGATIVE (NEGATIVE); Influenza B, PCR NEGATIVE (NEGATIVE); Resp Syncytial Virus, PCR NEGATIVE (NEGATIVE); SARS-Cov-2 (COVID-19) PCR, MMC NEGATIVE (NEGATIVE)
[2022-01-11] MEDS ORDERED: Clotrimazole-Be15 GM TP (22:25)
[2022-01-11] MEDS ORDERED: XARELTO20 MG PO (22:25)
[2022-01-11] MEDS ORDERED: LAMOTRIGINE100 M1 PO (22:26)
[2022-01-11 22:51] LABS: Appearance, Urine Clear (Clear); Color, Urine Yellow (P-Yellow)
[2022-01-11 22:53] LABS: Bacteria Rare /hpf; Red Blood Cells, Urine 0-2 /hpf (0-2); Squamous Epithelial Cells Not Seen /hpf (Few); White Blood Cells, Urine 0-2 /hpf (0-5)
[2022-01-11 22:54] LABS: Amorphous Light (0-Heavy); Transitional Epithelial Cells Rare /hpf (0-Rare)
[2022-01-12 01:49] LABS: International Normalized Ratio 1.39; Prothrombin Time Results 14.3 Sec (9.7-11.5)
[2022-01-12 02:05] LABS: U Amphetamine Screen Not Detected; U Barbituate Screen DETECTED; U Benzodiazapine Screen Not Detected; U Buprenorphine Screen Not Detected; U Cannabinoids Screen Not Detected; U Cocaine Screen Not Detected; U Methadone Screen Not Detected; U Methamphetamine Screen Not Detected; U Opiates Screen Not Detected; U Oxycodone Screen Not Detected; U Phencyclidine Screen Not Detected; U Propoxyphene Screen Not Detected
--- NOTE | 2022-01-12 03:11 | NUR ---
ADMIT NOTE: REPORT RECIEVED FROM ER FROM JACQUELYN FLOYD. PATIENT ARRIVED TO ROOM 350 AT 0214 VIA GURNEY. PATIENT TRANSFERRED VIA SLIDE TO BED. PATIENT IS VERBALLY NONRESPONSIVE AND MOANS WITH REPOSITIONING. SKIN IS CLEAR, DRY, AND INTACT. RESPIRATIONS ARE EVEN AND SLIGHTLY LABORED WITH AUDIBLE WHEEZING AND USE OF ACCESSORY MUSCLES WHEN LYING FLAT. NO CAREGIVER PRESENT FROM [facility]. TELE PLACED, PATIENT IS IN A-FIB AT 79 BPM. O2 DELIVERED VIA NC AT 3 L/MIN. O2 SATS 99%. PATIENT APPEARS COMFORTABLE, MOANING CEASED AFTER REPOSITIONING. BED IN LOW POSITION, CALL LIGHT WITHIN REACH, BED ALARM SET.
[2022-01-12 06:15] LABS: BASOPHILS ABSOLUTE AUTO 0.08 K/mm3 (0.00-0.23); BASOPHILS PERCENT AUTO 1 % (0-2); EOSINOPHILS ABSOLUTE AUTO 0.46 K/mm3 (0.00-0.68); EOSINOPHILS PERCENT AUTO 7 % (0-6); Hematocrit 31.3 % (37.0-53.0); Hemoglobin 10.2 g/dL (13.5-17.5); IMMATURE GRAN ABSOLUTE AUTO 0.01 K/mm3 (0.00-0.10); IMMATURE GRAN PERCENT AUTO 0 % (0-1); LYMPHOCYTES ABSOLUTE AUTO 0.77 K/mm3 (0.84-5.20); LYMPHOCYTES PERCENT AUTO 12 % (21-46); MONOCYTES ABSOLUTE AUTO 0.73 K/mm3 (0.16-1.47); MONOCYTES PERCENT AUTO 11 % (4-13); Mean Corpuscular HGB 31.3 pg (26.0-34.0); Mean Corpuscular HGB Conc 32.6 g/dL (31.5-36.5); Mean Corpuscular Volume 96 fL (80-100); NEUTROPHILS ABSOLUTE AUTO 4.52 K/mm3 (1.96-9.15); NEUTROPHILS PERCENT AUTO 69 % (41-73); Platelet Count 190 K/mm3 (150-400); RDW Coefficient Variation 15.8 % (11.7-14.2); RDW Standard Deviation 56.1 fL (35.1-46.3); Red Blood Cell Count 3.26 M/mm3 (4.30-5.90); White Blood Cell Count 6.57 K/mm3 (4.00-11.30)
[2022-01-12 06:28] LABS: Albumin, Blood 2.9 g/dL (3.4-5.0); Albumin/Globulin Ratio 0.7 (0.8-1.8); Bilirubin, Total 1.3 mg/dL (0.1-1.0); Bun/Creatinine Ratio 18.9 (12.0-20.0); Calcium, Blood 8.6 mg/dL (8.5-10.1); Creatinine, Blood 0.64 mg/dL (0.60-1.20); Globulin, Blood 3.9 g/dL (2.2-4.0); Potassium, Blood 3.6 mmol/L (3.5-5.5); Total Protein, Blood 6.8 g/dL (6.4-8.2)
[2022-01-12 08:40] LABS: Base Excess Venous 9.8 mmol/L; Bicarbonate Venous 32.4 mmol/L (24.0-30.0); PCO2 Venous 49.7 mmHg (38-42); PO2 Venous 144 mmHg (38-42); pH Blood Venous 7.44 (7.34-7.37)
--- NOTE | 2022-01-12 18:34 | NUR ---
SHIFT SUMMARY A/O TO SELF, GARBLED SPEECH. W/C BOUND AT BASELINE. PG TO DARCY, DOES NOT DRAW. NPO AT THIS TIME. SPEECH EVAL ORDERED. HYPERTENSIVE, IV HYDRALAZINE GIVEN. NO ACUTE CHANGES AT THIS TIME. BED IN LOWEST POSITION WITH CALL LIGHT IN REACH. WILL CONTINUE TO MONITOR AND REPORT TO ONCOMING RN.
--- NOTE | 2022-01-13 05:07 | NUR ---
SUMMARY: PT A/O TO SELF AND PLACE BUT HAS GARBLED SPEECH SO IS DIFFICULT TO UNDERSTAND AT TIMES. HE IS ABLE TO SPECIFY NEEDS AND ATTEMPTS TO FOLLOW INSTRUCTION BUT IS WEAK/DECONDITIONED AT THIS TIME. TURN SCHEDULE MAINTAINED AND ATTENDS CHANGED PRN FOR INCONTINENCE. HE REMAINS NPO PENDING ST EVAL D/T POSS ASPIRATION RELATED PNM, ORAL CARE PROVIDED AND IV ABX RECIEVED. CHANGED LASIX AND PHENOBARBITAL TO IV ROUTE THIS SHIFT D/T NPO STATUS AND SEVERAL PO MEDS WERE DC'D. RT PROVIDED BX TX'S PRN FOR WHEEZES THAT WERE WORSE W/EXERTION/TURNING. TELEMETRY DC'D D/T PT REPEATEDLY REMOVING IT AND HE WAS IN AFIB W/KNOWN HX AT 80'S BPM. NC WAS ALSO FREQ REPLACED AND HE REMAINS ON 2L O2 PER BASELINE W/SPO2 WNL. NO ACUTE CHANGES, VSS/AFEBRILE. WCTM/REPORT TO DAY RN.
[2022-01-13 05:31] LABS: Hematocrit 31.1 % (37.0-53.0); Hemoglobin 9.9 g/dL (13.5-17.5); Mean Corpuscular HGB 30.6 pg (26.0-34.0); Mean Corpuscular HGB Conc 31.8 g/dL (31.5-36.5); Mean Corpuscular Volume 96 fL (80-100); Mean Platelet Volume 8.8 fL (9.1-12.4); Platelet Count 180 K/mm3 (150-400); Red Blood Cell Count 3.24 M/mm3 (4.30-5.90); White Blood Cell Count 7.25 K/mm3 (4.00-11.30)
[2022-01-13 06:38] LABS: Bun/Creatinine Ratio 19.6 (12.0-20.0); Calcium, Blood 8.7 mg/dL (8.5-10.1); Creatinine, Blood 0.61 mg/dL (0.60-1.20); Potassium, Blood 3.3 mmol/L (3.5-5.5)
--- NOTE | 2022-01-13 06:45 | NUR ---
PT ONLY HAD X1 DOSE OF IV PHENOBARBITAL ON 01/13/22 AT 2123 PRIOR TO 0500 PHENOBARBITAL LAB DRAW. PREVIOUS DOSES WERE HELD BECAUSE MED WAS PO AND PT WAS NPO. LAB REQUIRES SEND OUT SO RESULTS MAY TAKE A FEW DAYS. WILL ENSURE DAY STAFF ARE AWARE.
--- NOTE | 2022-01-13 16:10 | NUR ---
SHIFT SUMMARY PT MORE ALERT THIS AFTERNOON. HAPPY AND COOPERATIVE IN ROOM. PT GOT UP OOB INTO RECLINER USING A MECH LIFT. TOLERATED WELL. SPEECH THERAPY WORKED WITH THE PT AND ORDERED A PUREE DIET, MEDS IN APPLESAUCE. NOTIFIED. PLAN TO DC TOMORROW. PTS CAREGIVER NOTIFIED OF THE PLAN FOR TOMORROW. NO OTHER ACUTE CHANGES IN ASSESSMENT AT THIS TIME. VS REVIEWED. CALL LIGHT IN REACH.
[2022-01-14 05:55] LABS: BASOPHILS ABSOLUTE AUTO 0.09 K/mm3 (0.00-0.23); BASOPHILS PERCENT AUTO 1 % (0-2); EOSINOPHILS ABSOLUTE AUTO 0.45 K/mm3 (0.00-0.68); EOSINOPHILS PERCENT AUTO 6 % (0-6); Hematocrit 31.6 % (37.0-53.0); IMMATURE GRAN ABSOLUTE AUTO 0.03 K/mm3 (0.00-0.10); IMMATURE GRAN PERCENT AUTO 0 % (0-1); LYMPHOCYTES ABSOLUTE AUTO 0.83 K/mm3 (0.84-5.20); LYMPHOCYTES PERCENT AUTO 10 % (21-46); MONOCYTES ABSOLUTE AUTO 0.97 K/mm3 (0.16-1.47); MONOCYTES PERCENT AUTO 12 % (4-13); Mean Corpuscular HGB 30.7 pg (26.0-34.0); Mean Corpuscular HGB Conc 31.6 g/dL (31.5-36.5); Mean Corpuscular Volume 97 fL (80-100); Mean Platelet Volume 9.3 fL (9.1-12.4); NEUTROPHILS ABSOLUTE AUTO 5.81 K/mm3 (1.96-9.15); NEUTROPHILS PERCENT AUTO 71 % (41-73); Platelet Count 189 K/mm3 (150-400); RDW Coefficient Variation 16.2 % (11.7-14.2); RDW Standard Deviation 57.1 fL (35.1-46.3); Red Blood Cell Count 3.26 M/mm3 (4.30-5.90); White Blood Cell Count 8.18 K/mm3 (4.00-11.30)
--- NOTE | 2022-01-14 06:09 | NUR ---
SUMMARY: [facility]". HE HAS VERY GARBLED SPEECH THAT IS DIFFICULT TO UNDERSTAND AT TIMES BUT IS ABLE TO SPECIFY NEEDS. HE WAS PLEASANT AND COOPERATIVE W/CARE ABLE, HAD TURN SCHEDULE MAINTAINED AND ATTENDS CHANGED PRN FOR URINARY INCONTINENCE. LIFT REQUIRED FROM BED TO RECLINER. NEW PG WAS PLACED TO BALJIT AFTER PT ACCIDENTLY PULLED HIS DARCY PG IN ATTEMPT TO REMOVE GOWN. IV ABX RECIEVED FOR ASP.PNM AND PT TOLERATED PILLS WHOLE IN APPLESAUCE. HE STILL SEEMS TO HAVE OCC DIFFICULTY W/THIN LIQ'S DESPITE ENFORCING SMALL SIPS AND RX'D PREC'S. NO S/S APIRATION OBSERVED BUT HE DOES COUGH FOLLOWING DRINKS AT TIMES, WILL ENSURE DAY STAFF ARE AWARE. NO ACUTE CHANGES, VSS/AFEBRILE. WCTM AND REPORT TO DAY RN.
[2022-01-14 06:16] LABS: Albumin, Blood 2.9 g/dL (3.4-5.0); Anion Gap 7 mmol/L (6-16); Blood Urea Nitrogen 10 mg/dL (8-24); Bun/Creatinine Ratio 19.2 (12.0-20.0); CO2, Blood 32 mmol/L (21-32); Calcium, Blood 8.8 mg/dL (8.5-10.1); Chloride, Blood 103 mmol/L (98-108); Creatinine, Blood 0.52 mg/dL (0.60-1.20); Glomerular Filtration Rate 107 (60-); Glucose, Blood 102 mg/dL (70-99); Phosphorus, Blood 2.2 mg/dL (2.5-4.9); Potassium, Blood 3.2 mmol/L (3.5-5.5); Sodium, Blood 142 mmol/L (136-145)
[2022-01-14] MEDS ORDERED: CODEINE-GUAIFE120 M1 PO (10:14)
[2022-01-14] MEDS ORDERED: VISBIOME 112.51 EACH PO (10:18)
[2022-01-14] MEDS ORDERED: AMOCLA875 PO (10:19)
--- NOTE | 2022-01-14 14:34 | NUR ---
PT DC'D, WHEELCHAIR PICKUP FROM [facility] FOR [facility], OXYGEN FOR TRANSPORT. PT TOLERATING FOOD ANF FLUIDS. RX FOR THICKIT SENT WITH DC INSTRUCTIONS. RX FAXED FOR PICKUP. PT TO CONT ON ORAL ABX. PT SENT HOME WITH MASOOD, ONLY HAD A SHIRT.
== END 2022-01-14 13:21 | disposition home or self-care (01) ==
LOC: ER 18:33 → ERHOLD 18:34 → MEDS 18:34 → ERHOLD 01-12 00:51 → MEDS 01-12 00:51 → ER 01-12 00:51 → MEDS 01-12 00:51 → ERHOLD 01-12 02:06 → MEDS 01-13 11:42
PROVIDERS: Emergency Medicine; Family Medicine; Hospitalist; ADMIT Internal Medicine
DX: J69.0 Pneumonitis due to inhalation of food and vomit (principal); G93.40 Encephalopathy, unspecified; R06.02 Shortness of breath; J44.9 Chronic obstructive pulmonary disease, unspecified; G40.909 Epilepsy, unspecified, not intractable, without status epilepticus; I11.0 Hypertensive heart disease with heart failure; I50.42 Chronic combined systolic (congestive) and diastolic (congestive) heart failure; I48.91 Unspecified atrial fibrillation; F03.90 Unspecified dementia, unspecified severity, without behavioral disturbance, psychotic disturbance, mood disturbance, and anxiety; E66.9 Obesity, unspecified; I73.9 Peripheral vascular disease, unspecified; F20.9 Schizophrenia, unspecified; F31.9 Bipolar disorder, unspecified; E72.20 Disorder of urea cycle metabolism, unspecified; R16.0 Hepatomegaly, not elsewhere classified; K80.10 Calculus of gallbladder with chronic cholecystitis without obstruction; R62.50 Unspecified lack of expected normal physiological development in childhood; Z88.1 Allergy status to other antibiotic agents; Z79.01 Long term (current) use of anticoagulants; Z79.02 Long term (current) use of antithrombotics/antiplatelets; Z20.822 Contact with and (suspected) exposure to COVID-19; Z86.39 Personal history of other endocrine, nutritional and metabolic disease; Z68.33 Body mass index [BMI] 33.0-33.9, adult
CPT/HCPCS: 0241U; 36415; 70450; 71045; 80048; 80053; 80069; 80175; 80184; 81001; 82803; 83605; 83735; 83880; 84145; 84484; 85025; 85027; 85610; 87040; 87086; 92526; 92610; 93005; 93010; 94640; 94664; 94760; 96365; 96366; 96367; 96375; 99285-25; A9270; C1751; G0378; J0295; J0360; J0456; J1650; J1940; J2543; J2560; J3480; J7050

== ENCOUNTER 2022-01-19 09:04 | Inpatient (IN) | payer OTHER ==
[~2022-01-19] VITALS: Ht 162.6 cm; Wt 110.5 kg
[~2022-01-19 09:04] MED LIST changes: +AMOCLA875 PO; +CODEINE-GUAIFE120 M1 PO; +Clotrimazole-Be15 GM TP; +LAMOTRIGINE100 M1 PO; +VISBIOME 112.51 EACH PO; +XARELTO20 MG PO
[2022-01-19 09:32] LABS: Base Excess Venous 11.5 mmol/L; Bicarbonate Venous 34.3 mmol/L (24.0-30.0); PCO2 Venous 40.8 mmHg (38-42); pH Blood Venous 7.53 (7.34-7.37)
[2022-01-19 09:42] LABS: BASOPHILS ABSOLUTE AUTO 0.09 K/mm3 (0.00-0.23); BASOPHILS PERCENT AUTO 1 % (0-2); EOSINOPHILS ABSOLUTE AUTO 0.54 K/mm3 (0.00-0.68); EOSINOPHILS PERCENT AUTO 6 % (0-6); Hematocrit 35.1 % (37.0-53.0); Hemoglobin 10.9 g/dL (13.5-17.5); IMMATURE GRAN ABSOLUTE AUTO 0.03 K/mm3 (0.00-0.10); IMMATURE GRAN PERCENT AUTO 0 % (0-1); LYMPHOCYTES ABSOLUTE AUTO 0.68 K/mm3 (0.84-5.20); LYMPHOCYTES PERCENT AUTO 8 % (21-46); MONOCYTES ABSOLUTE AUTO 0.89 K/mm3 (0.16-1.47); MONOCYTES PERCENT AUTO 10 % (4-13); Mean Corpuscular HGB 30.5 pg (26.0-34.0); Mean Corpuscular HGB Conc 31.1 g/dL (31.5-36.5); Mean Corpuscular Volume 98 fL (80-100); Mean Platelet Volume 9.5 fL (9.1-12.4); NEUTROPHILS ABSOLUTE AUTO 6.41 K/mm3 (1.96-9.15); NEUTROPHILS PERCENT AUTO 74 % (41-73); Platelet Count 192 K/mm3 (150-400); RDW Coefficient Variation 16.6 % (11.7-14.2); RDW Standard Deviation 59.4 fL (35.1-46.3); Red Blood Cell Count 3.57 M/mm3 (4.30-5.90); White Blood Cell Count 8.64 K/mm3 (4.00-11.30)
[2022-01-19 09:44] LABS: Source, Urine Foley catheter
[2022-01-19 09:50] LABS: Bilirubin, Urine Neg (Neg); Blood, Urine 1+ (Neg); Glucose Qualitative, Urine Neg (Neg); Ketones, Urine Neg (Neg); Leukocyte Esterase, Urine 1+ (Neg); Nitrite, Urine Neg (Neg); Protein, Urine 2+ (Neg); Urobilinogen, Urine 2+ (Normal)
[2022-01-19] MEDS ORDERED: XARELTO20 MG PO (10:02)
[2022-01-19] MEDS ORDERED: CLOP75 PO (10:03)
[2022-01-19] MEDS ORDERED: STIOLTO RESPIMAT4 G1 IH (10:03)
[2022-01-19 10:05] LABS: Albumin, Blood 2.8 g/dL (3.4-5.0); Albumin/Globulin Ratio 0.6 (0.8-1.8); Bilirubin, Total 1.8 mg/dL (0.1-1.0); Bun/Creatinine Ratio 21.4 (12.0-20.0); Calcium, Blood 8.8 mg/dL (8.5-10.1); Creatinine, Blood 0.65 mg/dL (0.60-1.20); Globulin, Blood 4.9 g/dL (2.2-4.0); Potassium, Blood 3.9 mmol/L (3.5-5.5); Total Protein, Blood 7.7 g/dL (6.4-8.2)
[2022-01-19 10:12] LABS: U Amphetamine Screen Not Detected; U Barbituate Screen DETECTED; U Benzodiazapine Screen Not Detected; U Buprenorphine Screen Not Detected; U Cannabinoids Screen Not Detected; U Cocaine Screen Not Detected; U Methadone Screen Not Detected; U Methamphetamine Screen Not Detected; U Opiates Screen Not Detected; U Oxycodone Screen Not Detected; U Phencyclidine Screen Not Detected; U Propoxyphene Screen Not Detected
[2022-01-19 10:27] LABS: Appearance, Urine Clear (Clear); Color, Urine Yellow (P-Yellow)
[2022-01-19 10:28] LABS: Bacteria Rare /hpf; Red Blood Cells, Urine 0-2 /hpf (0-2); Squamous Epithelial Cells Rare /hpf (Few); White Blood Cells, Urine 0-2 /hpf (0-5)
--- NOTE | 2022-01-19 17:30 | NUR ---
SHIFT SUMMARY PT UP FROM ED TO ROOM. PT PLACED ON TELE, VERIFIED WITH BROOCH AND BRACELET MAKER, PT AFIB IN THE 80'S. PT ALERT, NON VERBAL, MOANING/GRUNTING. PT ON 3L NC, SPO2 >92%. MÁRQUEZ IN PLACE, DRAINING TO GRAVITY. PT IV FLUIDS AND ABX STARTED. WILL CONTINUE TO MONITOR. CALL LIGHT WITHIN REACH.
--- NOTE | 2022-01-19 22:32 | NUR ---
RECEIVED REPORT FRON JACQUELYN BONILLA. PT ARRIVED TO ROOM 349 @ 2230. TELE NOTIFIED. O2, IV AND CALL LIGHT CONNECTED.
[2022-01-20 05:04] LABS: BASOPHILS ABSOLUTE AUTO 0.06 K/mm3 (0.00-0.23); BASOPHILS PERCENT AUTO 1 % (0-2); EOSINOPHILS ABSOLUTE AUTO 0.13 K/mm3 (0.00-0.68); EOSINOPHILS PERCENT AUTO 2 % (0-6); Hematocrit 34.8 % (37.0-53.0); Hemoglobin 10.4 g/dL (13.5-17.5); IMMATURE GRAN ABSOLUTE AUTO 0.03 K/mm3 (0.00-0.10); IMMATURE GRAN PERCENT AUTO 0 % (0-1); LYMPHOCYTES ABSOLUTE AUTO 0.82 K/mm3 (0.84-5.20); LYMPHOCYTES PERCENT AUTO 11 % (21-46); MONOCYTES ABSOLUTE AUTO 0.73 K/mm3 (0.16-1.47); MONOCYTES PERCENT AUTO 10 % (4-13); Mean Corpuscular HGB 29.8 pg (26.0-34.0); Mean Corpuscular HGB Conc 29.9 g/dL (31.5-36.5); Mean Corpuscular Volume 100 fL (80-100); Mean Platelet Volume 9.7 fL (9.1-12.4); NEUTROPHILS ABSOLUTE AUTO 5.67 K/mm3 (1.96-9.15); NEUTROPHILS PERCENT AUTO 76 % (41-73); Platelet Count 188 K/mm3 (150-400); RDW Coefficient Variation 16.6 % (11.7-14.2); RDW Standard Deviation 59.7 fL (35.1-46.3); Red Blood Cell Count 3.49 M/mm3 (4.30-5.90); White Blood Cell Count 7.44 K/mm3 (4.00-11.30)
[2022-01-20 05:19] LABS: Bun/Creatinine Ratio 23.8 (12.0-20.0); Calcium, Blood 8.7 mg/dL (8.5-10.1); Creatinine, Blood 0.67 mg/dL (0.60-1.20); Potassium, Blood 3.5 mmol/L (3.5-5.5)
--- NOTE | 2022-01-20 05:58 | NUR ---
SISAL PICKER SUMMARY: ALERT AND ORIENTED TO SELF AND SURROUNDINGS AND PERSON. VSS. REQUIRES FREQUENT REDIRECTION TO NOT PULL ON MÁRQUEZ TUBING. MOANS AND GRUNTS WITH OCCASIONAL WORDS FOR COMMUNICATING NEEDS. ABLE TO SAY "NO" AND SMILES AND SAYS "YEAH" WHEN APPROVES OF SOMETHING. NO BM THIS SHIFT. TEMP MÁRQUEZ PATENT AND DRAINING TO GRAVITY. HE HAS PULLED THREE STAT LOCKS OFF. LABS DRAWN THIS MORNING; NO CRITICAL VALUES TO REPORT. ON SURVEILLANCE. TELE AFIB @ 83bpm. O2 3L/min VIA NC. IV RUNNING KVO. WILL REPORT TO ONCOMING RN.
--- NOTE | 2022-01-20 06:26 | NUR ---
CALL TO NICOLAS AT [facility]. SHE STATED PT LIKES CHOCOLATE PUDDING AND ENJOYS WATCHING WESTERNS, ESPECIALLY BONANZA, ON TV.
--- NOTE | 2022-01-20 18:15 | NUR ---
SHIFT SUMMARY PT ORIENTED TO SELF AND CAREGIVERS ONLY. VSS. PT GRUNTS AND ATTEMPTS TO SPEAK THOUGH WORDS ARE UNINTELLIGABLE. HE SMILES WHEN SATISFIED AND NEEDS ARE MET. HE HAS PULLED 2 MÁRQUEZ STAT LOCKS OFF OF LEG. HAS RESTED WITH EYES CLOSED OFF AND ON THIS SHIFT, RESP EVEN & UNLABORED. CAREGIVERS HAVE BEEN AT BEDSIDE THROUGHOUT SHIFT.
--- NOTE | 2022-01-21 05:37 | NUR ---
NOC SHIFT SUMMARY: PATIENT AXO TO SELF, PERSON, AND SURROUNDINGS. VSS. PT RESTED DURING NOC SHIFT AND WAS REDIRECTABLE WHEN PERIODICALLY WAKING DURING EVENING. PT FACILITY CAREGIVER IN ROOM FOR SHORT PERIOD DURING BEGINNING OF SHIFT. PT. ABLE TO MAKE NEEDS KNOWN. MOUTH CARE PROVIDED WHEN PATIENT ASKING FOR WATER. DIFFICULT FOR PATIENT TO UNDERSTAND NPO DIET STATUS. FC IN PLACE DRAINING QUANTITY SUFFICIENT CYU. PT IN SURVEILLANCE ROOM. TELE AFIB 80-100S. O2 3L NC. IV FLUIDS RUNNING PER ORDERS. BED ALARM SET, 3X SIDE RAILS IN PLACE, BED LOCKED AND LOW POSITION, CALL LIGHT IN REACH.
[2022-01-21 07:33] LABS: Bun/Creatinine Ratio 25.3 (12.0-20.0); Creatinine, Blood 0.59 mg/dL (0.60-1.20)
[2022-01-21 08:32] LABS: Bicarbonate Venous 32.2 mmol/L (24.0-30.0); PCO2 Venous 57.1 mmHg (38-42)
--- NOTE | 2022-01-21 12:21 | NUR ---
Spoke with Dr Clements prior to Pt visit and discussed case. Family/Decision makers may benefit from goals of care discussion. Pt has multiple admissions this year. Pt resting in bed with his eyes closed upon arrival. Pt has a caregiver from [facility] for the Handiap at bedside. Caregiver Rosio reports at baseline Pt's functional status varies from moderate to full assist with ADLs to minimal assist. She reports Pt usually recovers more quickly in the past compare to today. Called and spoke with Healthcare rep Kenia. Provided update and reviewed plan of care. Kenia reports decisions are made as a team approach. Engaged in therpeutic discussion regarding advanced care planing, code status, and goals of care. Educated on life sustaining treatments including risk factors and implications of CPR. Educated on disease process including trajectory. Discussed options including considering hospice. Offered therapeutic listening and answered questions. Kenia reports plan to speak with the rest of the team and will discuss goals of care. Kenia expresses appreciation and reports no other concerns at this time. Palliative Care will remain available.
--- NOTE | 2022-01-21 16:08 | NUR ---
MET WITH CREW TEAM MEMBER OF THE FACILITY PT RESIDES A TEAM WITH RESIDENTS PER HIS REQUEST. CREW TEAM MEMBER IS PART OF THE DECISION MAKING TEAM. PT DECISION MAKER, PLAT AFFECT AND MINIMAL PARTICIPATION IN CONVERSATION. DISCUSSED GOALS OF CARE AND SUPPORTED RESIDENTS WE DISCUSSED PTS MEDICAL OPTIONS, PROGNOSIS AND OPTIONS TO MANAGE PTS CARE. HE HAD QUESTIONS ABOUT WHAT MEDICATIONS THE PATIENT WAS RECEIVING AND WHY ALL OF HIS SCHEDULED MEDICATIONS WERE NOT BEING ADMINISTERED. AGAIN, REINFORCED PT INABILITY TO SWALLOW AND HAD TO HOLD SOME OF PT PO MEDS FOR RISK THAT PT MAY ASPIRATE. ADVISED THAT HIS ANTISEIZURE MEDICATION WAS CRITICALLY HIGH UPON ADMISSION AND WAS BEING HELD FOR DAY OR TWO AND HE IS STILL BEING TREATED FOR BP AND HR. HE VU AND REPORTS HE WILL HAVE A CARE CONFERENCE AND DISCUSS ALL OF THIS INFORMATION TO THE TEAM TO MAKE SOME DECISIONS. PALLIATIVE CARE WILL CONTINUE TO MONITOR AND OFFER SUPPORT.
--- NOTE | 2022-01-21 18:00 | NUR ---
SHIFT SUMMARY PT WITH CAREGIVERS AT BEDSIDE MOST OF THE DAY. PALLIATIVE CARE DISCUSSED DIFFERENT OPTIONS WITH THEM AND PT ALONG WITH MD WHILE IN ROOM. SLEEPING ON AND OFF. WHEN AWAKE HE WILL TALK TO STAFF AND CAREGIVERS. DOES LIKE TO FIDDLE WITH TUBING AND IV SITE BUT CAN BE REDIRECTABLE. REMAINS NPO DUE TO ASPIRATION RISK.
--- NOTE | 2022-01-22 06:04 | NUR ---
NOC SHIFT SUMMARY: PT AWAKE MOST OF THE NIGHT. INTERMITTENT SLEEPING. CAREGIVER FROM PATIENTS FACILITY IN THE ROOM UNTIL 0600. PT HR ELEVATED 110-120. PRN RATE CONTROL MEDICATIONS AVAILABLE FOR HR >125. FREQUENT ORAL CARE. REPOSTIIONED 2S DURING SHIFT. PARTIAL BED BATH. FC CARE PROVIDED. PRODUCING CYU SEE CHARTING. ON AND ACTIVATED. IV FLUIDS RUNNING PER ORDERS. NO BM THIS SHIFT. O2 NC 1-2L. PT CAREGIVER STATES THAT PT RECENTLY STARTED TO USE O2 DURING THE DAY NOT JUST AT NIGHT. SCDS ON AND ACTIVATED. SODIUM ELEVATED MD AWARE. CALL LIGHT IN REACH, BED IN LOW AND LOCKED POSITION,
[2022-01-22 06:40] LABS: Bun/Creatinine Ratio 24.9 (12.0-20.0); Calcium, Blood 8.7 mg/dL (8.5-10.1); Creatinine, Blood 0.56 mg/dL (0.60-1.20); Potassium, Blood 3.2 mmol/L (3.5-5.5)
--- NOTE | 2022-01-22 18:16 | NUR ---
SHIFT SUMMARY PT AWAKE MOST OF THE DAY. ASSISTED WITH MEALS AND EATING WELL. VOICE SOUNDS MORE WET THIS AFTERNOON THAN THIS MORNING. NEEDS REMINDING TO LEAVE O2 IN NOSE. SATS DROP TO 83% WHEN HE REMOVES IT. CAREGIVERS AT BEDSIDE MOST OF THE DAY. NO REPORTS OF SOB OR AND NO S'S OF RESP DISTRESS.
--- NOTE | 2022-01-22 21:53 | NUR ---
NURSING NOTE: PATIENT PO MEDICATIONS HELD THIS EVENING PT. SLEEPING AND FULLY ALERT. PER ORDERS. FLOWMAX UNABLE TO BE CRUSHED FOR ADMINISTRATION.
--- NOTE | 2022-01-22 23:01 | NUR ---
PATIENT TAKING SMALL SPOON FULLS OF NECTAR THICK WATER AND JUICE WHILE IN UPRIGHT POSITION. TOLERATED WELL.
--- NOTE | 2022-01-23 05:25 | NUR ---
NOC SHIFT SUMMARY: PT ALERT DURING SHIFT. OCCASIONAL SLEEP DURING NIGHT. O2 NC 3L. RT PROVIDED TREATMENT PT. WHEEZING AT TRACHEA. HUMIDIY ADDED TO O2 LINE. PT. SKIN INTACT. BRIEF LEFT OFF TO AVOID FC TUBING PRESSING ON SKIN. PT. REPOSITIONED DURING SHIFT, BRIEF CHANGED, FC CARE AND NAVI CARE PROVIDED. PT. PRODUCING CLEAR DONNELL URINE QUANTITY SUFFICIENT. NO BM DURING SHIFT. PT. ABLE TO EAT SMALL PORTIONS OF PUREED FOODS AND NECTAR THICK WATER. PT. REMOVING O2 AND TELE LEADS FREQUENTLY. PT. HAS OCCASIONAL C/O PAIN WITH REPOSITIONING IN BLE. CAREGIVER IN ROOM DURING NOC SHIFT. CALL LIGHT IN REACH, BED ALARM SET, BED LOCKED AND LOW POSITION, SIDE RAILS UP, CALL LIGHT IN REACH.
[2022-01-23 05:35] LABS: Bun/Creatinine Ratio 20.8 (12.0-20.0); Calcium, Blood 8.6 mg/dL (8.5-10.1); Creatinine, Blood 0.62 mg/dL (0.60-1.20); Potassium, Blood 3.4 mmol/L (3.5-5.5)
[2022-01-23 19:01] LABS: Bun/Creatinine Ratio 22.2 (12.0-20.0); Calcium, Blood 8.4 mg/dL (8.5-10.1); Creatinine, Blood 0.59 mg/dL (0.60-1.20); Potassium, Blood 3.7 mmol/L (3.5-5.5)
--- NOTE | 2022-01-23 20:03 | NUR ---
SHIFT SUMMARY 71-YEAR-0LD MALE HERE FOR ASPIRATION PNEMONIA AND ACUTE RESPIRATORY. MEDS GIVEN CRUSHED IN APPLESAUCE, AND DIET PUREE, NECTOR THICK LIQUIDS. PTN REMINDED TO PUT HEAD FORWARD FOR BITE AND SWALLOW, SMALL AMOUNTS. HE STILL CONTINUED TO HAVE COURSE RESPIRATIONS AFTER EATING AND DRINKING, THEN HE SEEMED TO CLEAR WHEN RELAXED. PTN RESIDES AT [facility], AND CAREGIVERS FROM THIS FACILITY WERE PRESENT MOST OF DAY. MÁRQUEZ WAS DISCONTINUED AT 2 PM, NO VOID BY END SHIF, PASSED ON TO PM SHIFT. HR DID BUMP INTO THE 130'S BUT BACKED DOWN INTO THE 110'S. AFIB. TELEMETRY TO CALL FOR SUSTAINED HR ABOVE 125, WITH PRN LOPRESSOR ORDERED. CONTINUE TO MONITOR.
--- NOTE | 2022-01-24 04:40 | NUR ---
Notified Dr. Whitlock that pt has not voided all night. Pt had adams DCed at 1400, 01/23/22. Pt had 254ml in bladder when scanned at 2300 and 452ml when bladder scanned at 0400. New orders received: Bladder scan q6h, and straight cath when great than 450ml in bladder.
--- NOTE | 2022-01-24 07:25 | NUR ---
SHIFT SUMMARY PT ALERT TO SELF, VSS, UNABLE TO MAKE NEEDS KNOWN. CAREGIVER AT BEDSIDE. PT BEDBOUND. RETAINING URINE. MD NOTIFIED. RECEIVED ORDERS TO BLADDER SCAN Q6H AND STRAIGHT CATH FOR URINE GREATER THAN 45O. PT HAD 452ML IN BLADDER FROM 0400 BLADDER SCAN. STRAIGHT CATH PT AND HAD 460ML OUTPUT.
[2022-01-24 07:55] LABS: Bun/Creatinine Ratio 24.6 (12.0-20.0); Calcium, Blood 8.4 mg/dL (8.5-10.1); Creatinine, Blood 0.53 mg/dL (0.60-1.20); Potassium, Blood 3.7 mmol/L (3.5-5.5)
[2022-01-24 14:18] LABS: Bun/Creatinine Ratio 28.2 (12.0-20.0); Calcium, Blood 8.3 mg/dL (8.5-10.1); Creatinine, Blood 0.5 mg/dL (0.60-1.20); Potassium, Blood 3.6 mmol/L (3.5-5.5)
--- NOTE | 2022-01-24 15:12 | NUR ---
Review of pt with nursing and hopitalist. pt ashen and labored in breathing, some delirium noted ventilation is moderate. pt noted to be retaining urine, extremly high sodium. pt high risk for seizures andor pulmonary edema. requested adams and strict I/O. will speak with prison team on wednesday. pt is now a geriatric and needs that consideration in his care along with his comorbid cardiac conditions. reccomend hospice will consider ethic consult.
[2022-01-24 15:34] LABS: Source, Urine Foley catheter
--- NOTE | 2022-01-24 16:45 | NUR ---
PT IS WORKING HARD TO BREATHE, RESP 22-24, PT KEEPS WANTING TO REMOVE NC. PT WAS PLACED ON FLUIDS BUT STREMETIES ARE STARTING TO BECOME EDEMATOUS. PT GOES CORINNE AND OUT OF INTERACTING WITH STAFF, BUT IS CONFUSED AND GARBLES SPEECH AT BASELINE. CAME AND EXAMINED THE PT, PT IS TO BE MOVED TO PCU.
[2022-01-24 17:34] LABS: Appearance, Urine Hazy (Clear); Bilirubin, Urine Neg (Neg); Blood, Urine 1+ (Neg); Color, Urine Yellow (P-Yellow); Glucose Qualitative, Urine Neg (Neg); Ketones, Urine Neg (Neg); Leukocyte Esterase, Urine 1+ (Neg); Nitrite, Urine Neg (Neg); Protein, Urine 2+ (Neg); Urobilinogen, Urine NORM (Normal)
[2022-01-24 17:56] LABS: Bicarbonate Venous 32.9 mmol/L (24.0-30.0); PCO2 Venous 56.4 mmHg (38-42); pH Blood Venous 7.41 (7.34-7.37)
[2022-01-24 18:37] LABS: Bacteria Few /hpf; Hyaline Casts 0-2 /lpf (0-2); Red Blood Cells, Urine 0-2 /hpf (0-2); Squamous Epithelial Cells Rare /hpf (Few)
[2022-01-25 04:22] LABS: Bun/Creatinine Ratio 27.3 (12.0-20.0); Calcium, Blood 8.2 mg/dL (8.5-10.1); Creatinine, Blood 0.59 mg/dL (0.60-1.20); Potassium, Blood 3.7 mmol/L (3.5-5.5)
--- NOTE | 2022-01-25 04:30 | NUR ---
SHIF SUMMARY: PT SLEPT ON AND OFF THROUGHOUT THE NIGHT. ALERT AND ORIENTED TO SELF, STAFF, AND CAREGIVERS, ABLE TO FOLLOW COMMANDS, SPEECH GARBLED. AFEBRILE. BP STABLE. HR AFIB 110-120'S. PT REMAINS ON 5L NC SATING >94%. LUNG SOUNDS W/ WHEEZES AT START OF SHIFT. RT TO BEDSIDE W/ TREATMENT, PT RESPONDED WELL. RESPIRATIONS 20-24. STRENGTH EQUAL BILATERALLY. TKO GTT IN L POWERFLIDE. MÁRQUEZ CATH IN PLACE DRAINING CLEAR URINE TO GRAVITY. APPROX 2500 ML OF OUTPUT THIS SHIFT. NO BM. REPOS Q2. CAREGIVER AT BEDSIDE THROUGHOUT THE NIGHT AND UPDATED FREQUENTLY ON PT CARE. BED IN LOW, CALL LIGHT IN REACH. WILL REPORT TO ONCOMING RN.
--- NOTE | 2022-01-25 09:00 | NUR ---
AM NOTES: PT WAS OBTUNDED AND LETHARGIC THIS MORNING BARELY EVEN OPEN HIS EYES, WAS ABLE TO KEEP EYES OPEN FOR A LITTLE BIT BUT NOT MAKING EYE CONTACT, ALSO NOTED MILD RIGHT FACIAL DROOP, PUPILS EQUAL BUT SLUGGISH, NOT FOLLOWING DIRECTIONS, HAS A BLANK STARE THEN FALLS BACK TO SLEEP. HEAD CT AND VGB WAS ORDERED AND RESIDENT AND DR NARAYANAN WAS ABLE TO SEE PT AND ASSESS. VITALS HRR 120'S, BP SYSTOLIC 130'S, SATS ABOVE 90% ON 5L, AFEBRILE. PT NOTED TO HAVE SOME LABORED BREATHING, CRACKLES ON BOTH LUNGS UPON AUSCULTATION. UPON GETTING BACK IN THE ROOM AFTER HEAD CT WAS DONE, PT WAS MORE OBTUNDED NOT EVEN WAKING UP WITH PAIN STIMULI, DR LAI MADE AWARE, ORDERED BIPAP AND METOPROLOL IV 5 MG TO CONTROL HEART RATE. PALLIATIVE CARE NURSE WAS ABLE TO HAVE DISCUSSION WITH NO AT [facility] ABOUT PT'S CODE STATUS AND POOR PROGNOSIS. AWAITING TO MAKE DECISION AT THIS POINT TO KEEP PT FULL CODE AT THIS TIME. PT REMAINS ON BIPAP AT THIS TIME STILL NOT WAKING UP TO VERBAL AND PAIN STIMULI, COVID TEST CAME BACK NEGATIVE. STATISTICAL PROGRAMMER AT BEDSIDE. Q2 TURNS FOR COMFORT. MONITOR CBG Q6 HRS WHILE NPO.
[2022-01-25 09:15] LABS: Base Excess Venous 11.6 mmol/L; Bicarbonate Venous 33.2 mmol/L (24.0-30.0); PCO2 Venous 67.6 mmHg (38-42); pH Blood Venous 7.35 (7.34-7.37)
[2022-01-25 11:13] LABS: Influenza A, PCR NEGATIVE (NEGATIVE); Influenza B, PCR NEGATIVE (NEGATIVE); Resp Syncytial Virus, PCR NEGATIVE (NEGATIVE); SARS-Cov-2 (COVID-19) PCR, MMC NEGATIVE (NEGATIVE)
[2022-01-25 12:32] LABS: Base Excess Venous 12.1 mmol/L; Bicarbonate Venous 33.7 mmol/L (24.0-30.0); PCO2 Venous 64.1 mmHg (38-42); pH Blood Venous 7.37 (7.34-7.37)
--- NOTE | 2022-01-25 17:43 | NUR ---
PT SUMMARY: SEE AM NOTES. PT REMAINED ON BIPAP M SERIES ALL SHIFT SETTINGS STARTED AT 16/8 WITH 4L O2 BLEED O2 DEMAND INCREASED BY THE END OF THE SHIFT NOW AT 18/8 WITH 9L O2 BLEED. SATS MAINTAINED ABOVE 90% WILL STILL DESAT TO 88-89%. PT WOKE UP IN THE MIDDLE OF THE BEDBATH STILL LETHARGIC BUT WAS ABLE TO PULL MASK OFF ONE TIME, PT ATTEMPTED TO PUT PT BACK TO 02 ON 4L TO GIVE PT A BREAK FROM THE MASK PT UNABLE TO TOLERATE EVEN O2 WAS TITRATED UP TO 10L PT SATS WENT DOWN TO 80% PT WAS PLACED BACK ON BIPAP HAS TO CALL RT FOR AN UPDATE UNTIL SETTINGS WAS CHANGED AND INCREASED. PT WOKE UP AGAIN BEFORE THE END OF THE SHIFT WHEN CAREGIVER RAF HONG REPORTED THAT THE PT WAS ABLE TO COMMUNICATE A LITTLE BIT WITH GARBLED SPEECH STILL UNABLE TO FOCUS AND UNABLE TO FOLLOW DIRECTIONS THEN FELL BACK TO SLEEP. HRR REMAINED AFIB TACH UP TO 140'S IV METOPROLOL WAS GIVEN HRR NOW SUSTAINING AT 80-90'S, AFEBRILE. PT'S CODE STATUS NOW CHANGED TO DNR LIMITED PROVIDE EVERYTHING EXCEPT CPR. POLST AT THE CHART FOR PROVIDER TO SIGN. CAREGIVER STILL AT THE BEDSIDE, WILL CONTINUE TO MONITOR PT, TO REPORT TO ONCOMING SHIFT
--- NOTE | 2022-01-26 04:43 | NUR ---
SHIFT SUMMARY: PT REMAINED LETHARGIC AND OBTUNDED THROUGHOUT THE NIGHT, ABLE TO OPEN EYES TO PAIN STIMULI, UNABLE TO FOLLOW COMMANDS. BP STABLE, HR AFIB 100'S. MEDICATED ONCE WITH 5MG LOPRESSOR FOR HR 130'S, PT RESPONDED WELL. AFEBRILE. PT REMAINS ON BIPIP 13/11 WITH 10 LITER BLEED IN. SATING >92%. PT REMAINS NPO. CBG RANGED 90-94 THIS SHIFT. REPOS Q2. MÁRQUEZ CATH IN PLACE DRAINING DARK YELLOW URINE TO GRAVITY. NO BM. CAREGIVER AT BEDSIDE AND UPDATED FREQUENTLY ON PT CARE. BED IN LOW, ALARM ON, CALL LIGHT IN REACH. WILL REPORT TO ONCOMING RN.
[2022-01-26 05:19] LABS: BASOPHILS ABSOLUTE AUTO 0.13 K/mm3 (0.00-0.23); BASOPHILS PERCENT AUTO 1 % (0-2); EOSINOPHILS ABSOLUTE AUTO 1.76 K/mm3 (0.00-0.68); EOSINOPHILS PERCENT AUTO 14 % (0-6); Hematocrit 37.2 % (37.0-53.0); IMMATURE GRAN ABSOLUTE AUTO 0.08 K/mm3 (0.00-0.10); IMMATURE GRAN PERCENT AUTO 1 % (0-1); LYMPHOCYTES ABSOLUTE AUTO 0.66 K/mm3 (0.84-5.20); LYMPHOCYTES PERCENT AUTO 5 % (21-46); MONOCYTES ABSOLUTE AUTO 0.91 K/mm3 (0.16-1.47); MONOCYTES PERCENT AUTO 7 % (4-13); Mean Corpuscular HGB 30.2 pg (26.0-34.0); Mean Corpuscular HGB Conc 29.6 g/dL (31.5-36.5); Mean Corpuscular Volume 102 fL (80-100); Mean Platelet Volume 9.8 fL (9.1-12.4); NEUTROPHILS ABSOLUTE AUTO 9.45 K/mm3 (1.96-9.15); NEUTROPHILS PERCENT AUTO 73 % (41-73); Platelet Count 158 K/mm3 (150-400); RDW Standard Deviation 62.6 fL (35.1-46.3); Red Blood Cell Count 3.64 M/mm3 (4.30-5.90); White Blood Cell Count 12.99 K/mm3 (4.00-11.30)
[2022-01-26 05:42] LABS: Anion Gap 4 mmol/L (6-16); Blood Urea Nitrogen 18 mg/dL (8-24); Bun/Creatinine Ratio 30.8 (12.0-20.0); CO2, Blood 35 mmol/L (21-32); Calcium, Blood 8.6 mg/dL (8.5-10.1); Chloride, Blood 117 mmol/L (98-108); Creatinine, Blood 0.58 mg/dL (0.60-1.20); Glomerular Filtration Rate 104 (60-); Glucose, Blood 103 mg/dL (70-99); Potassium, Blood 3.3 mmol/L (3.5-5.5); Sodium, Blood 156 mmol/L (136-145); Vancomycin, Trough 19.2 ug/mL (5.0-10.0)
[2022-01-26 08:15] LABS: Base Excess Venous 10.5 mmol/L; Bicarbonate Venous 32.6 mmol/L (24.0-30.0); PCO2 Venous 54.5 mmHg (38-42); pH Blood Venous 7.42 (7.34-7.37)
--- NOTE | 2022-01-26 17:43 | NUR ---
SHIFT SUMMARY; ASSUMED CARE AT 0700. ON BIPAP WHEN ASSUMING CARE. WAKES TO PHYSICAL STIMULI. WAKES AT APPROX 0900. BREAK GIVEN FROM BIPAP. BEDSIDE SWALLOW COMPLETED. MEDS GIVEN CRUSHED IN APPLESAUCE, TOLERATED WELL. SPEECH REEVAL REQUESTED. AFTER EVAL, CHANGED AGAIN TO NPO. DR. NARAYANAN UPDATED. MEDICATED PER ORDERS WITH ABX, Q2 TURNS, CATH CARE COMPLETE. DONNELL URINE DRAINING TO GRAVITY. CAREGIVERS AT BEDSIDE DURING SHIFT. WILL CONTINUE TO MONITOR AND TREAT UNTIL CHANGE OF SHIFT.
[2022-01-27 06:00] LABS: BASOPHILS ABSOLUTE AUTO 0.14 K/mm3 (0.00-0.23); BASOPHILS PERCENT AUTO 1 % (0-2); EOSINOPHILS ABSOLUTE AUTO 1.75 K/mm3 (0.00-0.68); EOSINOPHILS PERCENT AUTO 14 % (0-6); Hematocrit 36.3 % (37.0-53.0); Hemoglobin 11.1 g/dL (13.5-17.5); IMMATURE GRAN ABSOLUTE AUTO 0.07 K/mm3 (0.00-0.10); IMMATURE GRAN PERCENT AUTO 1 % (0-1); LYMPHOCYTES ABSOLUTE AUTO 0.71 K/mm3 (0.84-5.20); LYMPHOCYTES PERCENT AUTO 6 % (21-46); MONOCYTES ABSOLUTE AUTO 0.86 K/mm3 (0.16-1.47); MONOCYTES PERCENT AUTO 7 % (4-13); Mean Corpuscular HGB Conc 30.6 g/dL (31.5-36.5); Mean Corpuscular Volume 101 fL (80-100); Mean Platelet Volume 10.2 fL (9.1-12.4); NEUTROPHILS PERCENT AUTO 72 % (41-73); Platelet Count 152 K/mm3 (150-400); RDW Coefficient Variation 17.2 % (11.7-14.2); RDW Standard Deviation 62.9 fL (35.1-46.3); Red Blood Cell Count 3.58 M/mm3 (4.30-5.90); White Blood Cell Count 12.53 K/mm3 (4.00-11.30)
[2022-01-27 06:09] LABS: Bun/Creatinine Ratio 24.9 (12.0-20.0); Calcium, Blood 8.4 mg/dL (8.5-10.1); Creatinine, Blood 0.72 mg/dL (0.60-1.20); Potassium, Blood 3.6 mmol/L (3.5-5.5)
--- NOTE | 2022-01-27 07:28 | NUR ---
SHIFT SUMMARY: PT HAS BEEN SOMNULENT BUT AROUSABLE AT TIMES. UNABLE TO ANSWER QUESTIONS BUT OCCASIONAL MUMBLES WORDS UNABLE TO UNDERSTAND. PT ON BIPAP OVERNIGHT. O2 SATS REMAINED > 92% WHILE ON BIPAP. PT REPOSITIONED FOR COMFORT Q2H. MÁRQUEZ CATHETER IN PLACE DRAINING WITHOUT DIFFICULTY. HR SR/ST. NO COMPLAINTS OF CHEST PAIN. CAREGIVER PRESENT AT BEDSIDE.
--- NOTE | 2022-01-27 11:35 | NUR ---
pt continues to be lethargic, opening his eyes only occasionally spontaneously, and briefly to gentle tactile/verbal stimuli. He occasionally attempts to move the mask off of his face, but the caregiver at the bedside is preventing it most of the time. The pt just managed to pull the mask off, and immediately had desaturation to 68%. RN alerted by the bipap alarm and bipap was replaced, 100% oxygen turned on for 2 minutes and spo2 meanwhile improved to 95%. He is becoming more and more alert this morning.
--- NOTE | 2022-01-27 13:09 | NUR ---
Taken off of bipap for a break, on hi flow n.c. with O2 started at 8 l/min; spo2 88-89%. Increased oxygen delivery to 10 l/min and spo2 is 90-91%. RR 22/minute, some use of accessory muscles noted; shoulders and belly. Heart rate 106-129 bpm. Pt is sitting upright in bed, caregiver at the bedside.
--- NOTE | 2022-01-27 13:22 | NUR ---
Pt's work of breathing increased, RT Ritchie called for eyes on pt and pt was struggling too much on the nasal cannula, so pt was put back on the bipap.
--- NOTE | 2022-01-27 13:25 | NUR ---
Pt's lung sounds are still crackles throughout. No wheezing noted. Work of breathing improved now on Bipap. He is resting on his back, HOB 30 degrees. Repositioned to his left side at this time, with caregiver assisting staff.
--- NOTE | 2022-01-27 15:37 | NUR ---
Caregivers at the bedside at this time. UPdated the staff of [facility] who are here about the attempts to wean the pt off of bipap, without success yet. Also spoke with Padmini Chase and decision made to wait until tomorrow to attempt ST evaluation. Pt is still lethargic, and also with his work of breathing he is not able to be off of the bipap long enough to tolerate an evaluation, even if he was awake enough.
--- NOTE | 2022-01-28 04:24 | NUR ---
PT SLEEPING WELL TONIGHT. INTERMITTENTLY ALERT BUT WITH MINIMAL RESPONSES. PT TOLERATING BIPAP WELL. COPY WRITER AT BEDSIDE. SPO2 WNL ON BIPAP. VSS. NO OTHER ISSUES TONIGHT.
[2022-01-28 04:38] LABS: BASOPHILS ABSOLUTE AUTO 0.15 K/mm3 (0.00-0.23); BASOPHILS PERCENT AUTO 1 % (0-2); EOSINOPHILS ABSOLUTE AUTO 1.94 K/mm3 (0.00-0.68); EOSINOPHILS PERCENT AUTO 15 % (0-6); Hematocrit 39.4 % (37.0-53.0); Hemoglobin 11.5 g/dL (13.5-17.5); IMMATURE GRAN ABSOLUTE AUTO 0.07 K/mm3 (0.00-0.10); IMMATURE GRAN PERCENT AUTO 1 % (0-1); LYMPHOCYTES ABSOLUTE AUTO 0.79 K/mm3 (0.84-5.20); LYMPHOCYTES PERCENT AUTO 6 % (21-46); MONOCYTES ABSOLUTE AUTO 0.87 K/mm3 (0.16-1.47); MONOCYTES PERCENT AUTO 7 % (4-13); Mean Corpuscular HGB 29.9 pg (26.0-34.0); Mean Corpuscular HGB Conc 29.2 g/dL (31.5-36.5); Mean Corpuscular Volume 103 fL (80-100); Mean Platelet Volume 10.3 fL (9.1-12.4); NEUTROPHILS ABSOLUTE AUTO 9.53 K/mm3 (1.96-9.15); NEUTROPHILS PERCENT AUTO 72 % (41-73); Platelet Count 167 K/mm3 (150-400); RDW Coefficient Variation 17.4 % (11.7-14.2); RDW Standard Deviation 63.5 fL (35.1-46.3); Red Blood Cell Count 3.84 M/mm3 (4.30-5.90); White Blood Cell Count 13.35 K/mm3 (4.00-11.30)
[2022-01-28 04:53] LABS: Calcium, Blood 8.9 mg/dL (8.5-10.1); Creatinine, Blood 0.59 mg/dL (0.60-1.20); Potassium, Blood 3.2 mmol/L (3.5-5.5)
--- NOTE | 2022-01-28 09:47 | NUR ---
0800 Pt was given a break from the bipap, oral care was done and casts removed from his soft palate. He is coughing occasionally, very weakly, but uncertain if he is able to swallow them. They were suctioned out of the back of his mouth. He opens his eyes, occasionally will look around at people in the room, but makes no vocalization and does not respond to requests to filament shaper my hands. He does attempt occasionally to pull off the bipap mask, caregiver at the bedside reports. He tolerated being off of the bipap for about 20 minutes, and then due to his work of breathing, increasing respiratory rate and heart rate he was put back on the bipap.
--- NOTE | 2022-01-28 09:51 | NUR ---
Pt tolerating the bipap. He continues to be lethargic, and appears exhausted after breathing on his own on 8 l/min O2 earlier. PT was repositioned to his right side.
--- NOTE | 2022-01-28 10:31 | NUR ---
Heart rate is sustaining 120-140 bpm, atrial fibrillation. This morning his heart rate has been running between 105 and 125, afib. At this time we gave the 1200 metoprolol early to control the heart rate. Blood pressure is high. Call to Dr. Brady to notify her of the change. Dr. Dixon called, and he was updated as well.
--- NOTE | 2022-01-28 12:04 | NUR ---
REPOSITIONED INTO A HIGH RONQUILLO'S POSITION BY THE VISITING CAREGIVERS AT THIS TIME. PT'S SISTER IS HERE FROM [facility] TO SEE HIM.
--- NOTE | 2022-01-28 12:42 | NUR ---
Call to attending hospitalist, Dr. Ledezma covering, concerning pt's heart rate trending up again, now 120-143 bpm, afib as before. Blood pressure 129/99. Pt is awake, moving his hands and arms, and does gently squeeze my hands when I hold his hand. His eyes are fully open, he does follow with his eyes. He is wearing the bipap, settings 14/6 and 50% fiO2. Spo2 93%. Lung sounds remain with crackles throughout. No wheezes were appreciated. Caregiver is at the beside.
--- NOTE | 2022-01-28 14:17 | NUR ---
Repositioned to his right side lying. Pt was given a brief break from the bipap, just long enough to do oral care, while on 10 l/min of oxygen with n.c. high flow tubing. He has copious amounts of secretions in the back of his mouth, white in color, and shaikh thick dried secretions on the roof of his mouth. Oral care is being done every 2-4 hours RTC. He exhibited no gag reflex during the suctioning/oral care. Pt is alert, moving his head and eyes, and squeezing caregiver's hand weakly at times. He also attempts to pull the bipap off but the caregiver is able to prevent him from doing so. He only tolerated being off of the bipap long enough for the oral care to be done, and then his SpO2 was 87% and not improving, as well as his work of breathing increasing, so he was put back on the bipap. Caregiver remains at the bedside.
--- NOTE | 2022-01-28 14:45 | NUR ---
Call to Dr. Brady regarding urine output less than 0.5 cc/kg/hour today. Total urine output today has been 300 cc.
--- NOTE | 2022-01-28 17:11 | NUR ---
Dr. Brady was here to see the patient. Pt had just been suctioned by RT. Explained to doctor that pt's heart rate last hour has been steady 120-130s, occasionally 140-145. RR was 30s and spo2 90% on 50% fio2. After suctioning, RR 24-26, but heart rate remains high, and spo2 89% on bipap 30 minutes after suctioning. There were copious amounts of very thick secretions evacuated, yellow/white in color. Caregivers from pt's home are at the bedside.
--- NOTE | 2022-01-28 17:35 | NUR ---
Spoke to pt's CG at bedside this evening, she reports "the team" at [facility] will be discussing code status and what would be most apropriate for him. I will check in with them again in the morning, possibly place ethics consult at that time.
--- NOTE | 2022-01-28 17:48 | NUR ---
fIo2 increased gradually over the past hour from 50% to 60% to keep spo2 greater than 89%.
--- NOTE | 2022-01-28 18:21 | NUR ---
Spoke with JACQUELYN Eason for the [facility] which the patient lives in, as well as Tan who is the program manufacturing leader. There was a meeting this evening with the pt's JOI and others in the program, and decision was made to make the patient comfort care at this time. Notified Dr. Brady and Dr. Ledezma. Palliative care was also notified.
--- NOTE | 2022-01-28 20:56 | NUR ---
ASSUMPTION OF CARE. RECEIVED REPORT ON PCU 9 @1945. PT HAS CAREGIVERS AT BEDSIDE AND EDUCATED ON COMFORT CARE MEASURES. CAREGIVERS REQUESTED FOR BIPAP TO REMAIN ON PT UNTIL 01/29/22. PT WITH LABORED RESPIRATIONS. ATIVAN 0.5MG GIVEN, PT RESPONDED WELL. PT RESPOS Q2. BED IN LOW, CALL LIGHT IN REACH.
--- NOTE | 2022-01-29 04:42 | NUR ---
SHIFT SUMMARY: PT REMAINS COMFORT CARE MEASURES ONLY. REMAINS ON BIPAP 09/11 60%, SATING >90%, PLAN TO REMOVE BIPAP IN THE AM OF 01/29 AT CAREGIVERS REQUEST. RESPIRATIONS SHALLOW AND LABORED. MEDICATED THROUGHOUT THE NIGHT FOR AIR HUNGER, SEE EMAR. PT WITH COPIOUS AMOUNTS OF THICK YELLOW SECRETIONS, ORAL CARE DONE Q2. PT DOES NOT RESPOND TO VERBAL OR NOXIOUS STIMULI, AFEBRILE, BP STABLE, HR REMAINS AFIB 120'S-140'S. MÁRQUEZ CATHETER IN PLACE DRAINING DARK YELLOW URINE TO GRAVITY. REPOS Q2. CAREGIVERS AT BEDSIDE THROUGHOUT THE NIGHT, UPDATED FREQUENTLY ON PT CARE. BED IN LOW, CALL LIGHT IN REACH. WILL REPORT TO ONCOMING RN.
--- NOTE | 2022-01-29 08:46 | NUR ---
Spiritual care visit conducted. Pt expires moments before entering the . Pt's caregivers are present and grieving appropriately. I conduct a life review and provide grief support, a calming presence and prayer. They respond well and show signs of being comforted.
--- NOTE | 2022-01-29 09:38 | NUR ---
PT REPOSITIONED IN ROOM, TURNED ON FAN AND COVERED UP WITH SHEET.
--- NOTE | 2022-01-29 09:46 | NUR ---
PT AT 0811 W/ CAREGIVERS, FAMILY, CRYSTALIZER, AND DR. GOODE AT BEDSIDE. CRISTY GOYALEY GAMAL D/C'D. BED BATH COMPLETE, AND NEW LINENS APPLIED. [facility] CAME AND PICKED THE PT UP AY 0950. BELONGINGS SENT WITH THE HOME.
== END 2022-01-29 09:45 | DRG 177 ==
LOC: ER 09:04 → PCU 12:05 → MEDS 12:05 → PCU 01-24 17:43
PROVIDERS: Emergency Medicine; Family Medicine; Hospitalist; ADMIT Internal Medicine
PROC: 5A09357 Assistance with Respiratory Ventilation, Less than 24 Consecutive Hours, Continuous Positive Airway Pressure (ICD-10-PCS; principal; 2022-01-27)
DX: J69.0 Pneumonitis due to inhalation of food and vomit (principal); J96.21 Acute and chronic respiratory failure with hypoxia; J96.22 Acute and chronic respiratory failure with hypercapnia; E87.0 Hyperosmolality and hypernatremia; E87.3 Alkalosis; R41.4 Neurologic neglect syndrome; I50.42 Chronic combined systolic (congestive) and diastolic (congestive) heart failure; G93.1 Anoxic brain damage, not elsewhere classified; Z51.5 Encounter for palliative care; J45.909 Unspecified asthma, uncomplicated; I48.91 Unspecified atrial fibrillation; F89 Unspecified disorder of psychological development; R77.8 Other specified abnormalities of plasma proteins; E87.6 Hypokalemia; G40.909 Epilepsy, unspecified, not intractable, without status epilepticus; R13.10 Dysphagia, unspecified; F20.9 Schizophrenia, unspecified; I27.21 Secondary pulmonary arterial hypertension; I11.0 Hypertensive heart disease with heart failure; T42.3X5A Adverse effect of barbiturates, initial encounter; Z20.822 Contact with and (suspected) exposure to COVID-19; F31.9 Bipolar disorder, unspecified; F03.90 Unspecified dementia, unspecified severity, without behavioral disturbance, psychotic disturbance, mood disturbance, and anxiety; E78.00 Pure hypercholesterolemia, unspecified; I73.9 Peripheral vascular disease, unspecified; I51.7 Cardiomegaly; G47.33 Obstructive sleep apnea (adult) (pediatric); E66.01 Morbid (severe) obesity due to excess calories; K74.60 Unspecified cirrhosis of liver; Z99.81 Dependence on supplemental oxygen; Z68.37 Body mass index [BMI] 37.0-37.9, adult; Z88.1 Allergy status to other antibiotic agents; Z79.51 Long term (current) use of inhaled steroids; Z79.899 Other long term (current) drug therapy; Z79.2 Long term (current) use of antibiotics; Z79.01 Long term (current) use of anticoagulants; Z98.890 Other specified postprocedural states
CPT/HCPCS: 0241U; 36415; 51702; 70450; 71045; 80048; 80053; 80184; 80202; 81001; 82140; 82803; 82947; 83605; 83880; 84145; 84295; 84484; 85025; 87086; 92526; 92610; 93005; 93010; 94640; 94660; 94664; 94760; 94762; 96365-59; 96367-59; 96375-59; 99285-25; A9270; C1751; J0295; J0456; J1650; J1940; J1953; J2060; J2543; J2560; J2930; J3370; J3480; J7030; J7050; J7070